=== PATIENT | female | born 2000 | race Asian ===

== ENCOUNTER 2025-01-07 08:58 | Outpatient (AMB) | payer BC, SELFPAY ==
--- NOTE | 2025-01-07 09:03 | OBCLNT_ITS ---
Vital Signs 01/07/25 09:15 Height 1.52 m Height Method Stated Weight 80.456 kg Weight Measurement Method Standing Scale BMI 34.6 BP 105/67 Blood Pressure Source Automatic Cuff Blood Pressure Location Left Upper Arm Position Sitting Respiration 14 Pulse 85 Pulse Source Monitor Temp 98.2 F Temp Source Oral Pulse Oximetry (%) 98 Oxygen Delivery Method Room Air Allergies/Home Meds Allergies & Medications Allergies No Known Allergies Allergy (Verified 01/07/25 09:16) Medication Reconciliation omega 0-tkb-pfe-fish oil 100 mg-160 mg-1,000 mg capsule (Fish Oil) cap PO 01/07/25 [History Confirmed 01/07/25] vits 75-iron 28 mg-folic acid 800 mcg-omega-3 oral combo pack (One A Day Women's DHA) pkg PO 01/07/25 [History Confirmed 01/07/25] Intake Visit Data Collection New Patient or Established: New Patient (never been to [facility]) Reason for Visit:: first part, care Seen by Clinical Staff ONLY (RN/MA): No Weights And Measures Inspector Required: Yes Do You Feel Safe at Home: Yes Authorities Contacted: N/A PCP or OBGYN visit in last 3 months: No Hx Now: Yes Are you currently on any form of Control: No Last menstrual period: 11/16/24 Pain Present Currently: No Pain Scale Used: Sy-Savage/Numerical Pain scale:: 0 Smoking Status Smoking Status: Never smoker Questionnaires Covid-19 Vaccine Questionnaire Has patient been vacinated for Covid-19 Have you been vacinated for Covid-19: Yes PHQ-9 PHQ-2 Over the last 2 weeks, how often have you been bothered by any of the following problems? 1. Little interest or pleasure in doing things: not at all 2. Feeling down, depressed, or hopeless: not at all Total score: 0 PHQ-9 3. Trouble falling or staying asleep, or sleeping too much: Not at all 4. Feeling tired or having little energy: Not at all 5. Poor appetite or overeating: Not at all 6. Feeling bad about yourself - or that you are a failure or have let yourself or your family down: Not at all 7. Trouble concentrating on things, such as reading the newspaper or watching television: Not at all 8. Moving or speaking so slowly that other people could have noticed? - Or the opposite - being so fidgety or restless that you have been moving around a lot more than usual: not at all 9. Thoughts that you would be better off or of hurting yourself in some way: Not at all Total score: 0 Source: Developed by Drs. Tavon Peters, Alondra Gaitan, Ulises Amezquita and colleagues, with an educational meliza from [employer]. 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 Her is in IT . 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 at Home: Yes Past Medical History Past Medical History Have you ever been diagnosed with any of the following: Neurological Problems Cerebrovascular Accident (CVA): No Seizures: No Guillain-[place] Syndrome: No Dominique's Palsy: No Migraine: No Cardiology Problems Cardiac Arrhythmia: No Angina: No Hypercholesterolemia: No Rheumatic Fever: No Deep Vein Thrombosis: No Hypertension: No Respiratory Problems Asthma: No Bronchitis: No Pneumonia: No Tuberculosis: No Pulmonary Embolism: No Sleep Apnea: No Tobacco Use: No Stomache/Intestinal Problems Gall Bladder Disease: No Irritable Bowel: No Gastroesophageal Reflux Disease: No Genital/Urinary Problems Chronic Kidney Disease: No Renal Disease: No Kidney Stones: No Reproductive Problems Breast Cancer: No Endometriosis: No Fibroids: No Genital Herpes: No Gonorrhea: No Pelvic Inflammatory Disease: No Polycystic Ovarian Syndrome: No Previous Pregnancies: No Syphilis: No Uterine Prolapse: No Musculoskeletal Problems Arthritis: No Rheumatoid Arthritis: No Scoliosis: No Carpal Tunnel Syndrome: No Fibromyalgia: No Endocrine Problems Diabetes Mellitus Type 1: No Diabetes Mellitus Type 2: No Hyperthyroidism: No Hypothyroidism: No Systemic Lupus Erythematosus: No Blood Problems Anemia: No Thalassemia: No Clotting Problems: No Psychologic Problems Depression: No Anxiety: No Attention Deficit Disorder: No Other Problems Hospitalization: No Autoimmune Disease: No Cosmetic Surgery: No Blood Transfusions: No MRSA: No Surgical History Appendectomy: Yes (Laparoscopic appendectomy June 2023) Bariatric Surgery: No Breast Surgery: No History of Present Illness HPI Narrative Patient is a pleasant 24-year-old G1, P0 presents with her for a new OB appointment. She is sure of her LMP was 11/16/2024 giving her a due date of 08/23/2025. She denies vaginal bleeding she reports mild nausea and fatigue. She is due for a Pap smear today. She is taking vitamins and fish oil today. OB Initial Visit Menstrual History Menstrual reliability: definite Flow: normal Menstrual regularity: regular Monthly: Yes Age at menarche: 14 On control pills at conception: No Date of positive home test: 12/15/24 Associated symptoms (LMP): Reports nausea and irritability OB History : 1 Para: 0 Hx # Pregnancies: 0 Hx Total # of Abortions (Spontaneous & Elective): 0 Infection History & Risk Evaluation History of STDs: none Patient or partner has history of Genital Herpes: No Varicella/chicken pox status: immunized Genetic Screening & History Genetic Screening/Teratology Counseling - Includes patient, baby's father, or anyone in either family with: 1. Patient's age 35 years or older as of estimated date of delivery: No 2. Thalassemia (Divehi, Belarusian, Mediterranean, or Background); MCV less than 80: No 3. Neural Tube Defect (Meningomyelocele, Spina Bifida, or Anencephaly): No 4. Congenital Heart Defect: No 5. Down Syndrome: No 6. Brian-Sachs (Ashkenazi [place], Cajun, Malay [place]): No 7. Rut Disease (Ashkenazi [place]): No 8. Familial Dysautonomia (Ashkenazi [place]): No 9. Sickle Cell Disease or Trait (): No 10. Hemophilia or other blood disorders: No 11. Muscular Dystrophy: No 12. Cystic Fibrosis: No 13. [place]'s Chorea: No 14. Mental Retardation/Autism: No 15. Other inherited genetic or chromosomal disorder: No 16. Maternal Metabolic Disorder (EG,TYPE 1 Diabetes, PKU): No 17. Patient or baby's father had a child with defects not listed above: No 18. Recurrent loss or a stillbirth: No 19. Medications (including supplements, vitamins, herbs or otc drugs)/illicit/recreational drugs/alcohol since last menstrual period: No 20. Any other: No Comments/Counseling: Patient and her desire NIPT will authorize for this and draw it at next visit as patient is only 7 weeks today. Infection History 1. Live with someone with TB or exposed to TB: No 2. Rash or viral illness since last menstrual period: No 3. Hepatitis B,C: No Other (see comments) Source: [employer] OB Flowsheet OB Flowsheet Initial Weight: Not Recorded Date -?-?-?-?-?-?-?-?-?-?-?-?- EGA Weight Edema CTX Effacement BP Fundal ht Pres Dilation Effacement Station Visit Note Alb Glu FHR Mov 01/07/25 -?-?-?-?-?-?-?-?-?-?-?-?- 7w 3d 80.456 kg 105/67 140 Review of Systems Constitutional Constitutional: Reports system reviewed and no additional complaints, except as documented, Reports poor appetite and Reports lethargy Gastrointestinal Gastrointestinal: Reports nausea Psychiatric Psychiatric: Reports irritability Exam General General Appearance: alert, in no apparent distress, comfortable, cooperative, healthy appearing and well groomed Head Head exam: atraumatic, normocephalic and normal inspection ENT ENT exam: Present other (Patient has braces on her teeth) Neck Neck exam: Present normal inspection, full ROM and trachea midline Chest Chest inspection: Present normal inspection and symmetric chest wall rise Exp Chest Breast: bilateral: other (Breasts slightly swollen otherwise normal bilaterally.) Resp Respiratory exam: Present normal lung sounds bilaterally Card Cardiovascular exam: Present regular rate, normal rhythm and normal heart sounds Abdominal Abdominal exam: Present soft and normal bowel sounds External exam: Present normal external exam Speculum exam: Present normal speculum exam Bimanual exam: Present normal bimanual exam and other (Slightly narrow pelvic outlet) Extremities Extremities exam: Present normal inspection and full ROM Psych Psychiatric exam: Present normal affect and normal mood Skin Skin exam: Present warm, dry, intact and normal color Assessment & Plan Diagnosis / Problem List (1) : Status: Acute Additional Plan Follow Up: 4 Weeks Office Procedures OB Clinic LOC & Office Proc's Nursing/Assessment Patient Status: Initial/New Patient OB Clinic Nursing Assessment: Medication Reconciliation, Update PMH in EMR and Vital Signs OB Clinic Coordination of Care: Complex Care and Chronic Disease 1-5, Consent,records obtained, informed consent, Education Simp Pt/Fam, Lab and Imaging orders and Staff clarify orders Special Needs: Heart tones Miscellaneous Interventions: Pelvic/Pap Smear Set up New Patient Charge New Patient Point Assignment: [id number] New Patient Point Charge: BUSINESS TRANSFORMATION MANAGER Level 4 ([id number]) AGRICULTURAL PLOW OPERATOR: Papsmear Pap Smear Procedure [place] in room during procedure?: No Papsmear completed: yes OB Ultrasound OB Ultrasound Ultrasound technique:: transabdominal Gestational sac assessment: Presence, location, size, shape:: Intrauterine at 6-7 weeks with cardiac activity noted. [place]-rump length of 0.69 corresponding to 6 weeks 4 days. Embryo/ Assessment 1: Cardiac activity confirmation:: Yes
[2025-01-07 09:15] VITALS: BP 105/67; PULSE 85; RESP 14; TEMP 36.8; O2SAT 98; BMI 34.6
== END 2025-01-07 09:43 | disposition home or self-care (01) ==
LOC: HODSOBC 08:58
PROVIDERS: Supervising Provider Obstetrics & Gynecology; Visit Provider Obstetrics & Gynecology
DX: Z34.01 Encounter for supervision of normal first pregnancy, first trimester (principal); Z3A.01 Less than 8 weeks gestation of pregnancy
CPT/HCPCS: 76805; 99204; Q0091; G0463

== ENCOUNTER 2025-02-09 15:15 | Outpatient (AMB) | payer BC, SELFPAY ==
[2025-02-09 15:18] VITALS: BP 110/72; PULSE 93; RESP 18; TEMP 36.7; O2SAT 97; BMI 35.2
--- NOTE | 2025-02-09 15:18 | OBCLNT_ITS ---
Vital Signs 02/09/25 15:18 Height 1.52 m Height Method Stated Weight 81.363 kg Weight Measurement Method Standing Scale BMI 35.2 BP 110/72 Blood Pressure Source Automatic Cuff Blood Pressure Location Left Upper Arm Position Sitting Respiration 18 Pulse 93 Pulse Source Monitor Temp 98.1 F Temp Source Oral Pulse Oximetry (%) 97 Oxygen Delivery Method Room Air Allergies/Home Meds Allergies & Medications Allergies No Known Allergies Allergy (Verified 02/09/25 15:20) Medication Reconciliation omega 1-gce-uvx-fish oil 100 mg-160 mg-1,000 mg capsule (Fish Oil) cap PO 01/07/25 [History Confirmed 02/09/25] vits 75-iron 28 mg-folic acid 800 mcg-omega-3 oral combo pack (One A Day Women's DHA) pkg PO 01/07/25 [History Confirmed 02/09/25] Intake Visit Data Collection New Patient or Established: Established Patient (seen at [facility] within 3 years) Reason for Visit:: CARE Seen by Clinical Staff ONLY (RN/MA): No Radiosonde Operator Required: No Do You Feel Safe at Home: Yes Authorities Contacted: N/A PCP or OBGYN visit in last 3 months: Yes Date of Last PCP or OBGYN visit: 01/07/25 Are you currently on any form of Control: No Last menstrual period: 11/16/25 Pain Present Currently: No Pain Scale Used: Sy-Savage/Numerical Pain scale:: 0 Smoking Status Smoking Status: Never smoker Questionnaires Covid-19 Vaccine Questionnaire Has patient been vacinated for Covid-19 Have you been vacinated for Covid-19: Yes PHQ-9 PHQ-2 Over the last 2 weeks, how often have you been bothered by any of the following problems? 1. Little interest or pleasure in doing things: not at all 2. Feeling down, depressed, or hopeless: not at all Total score: 0 PHQ-9 3. Trouble falling or staying asleep, or sleeping too much: Not at all 4. Feeling tired or having little energy: Not at all 5. Poor appetite or overeating: Not at all 6. Feeling bad about yourself - or that you are a failure or have let yourself or your family down: Not at all 7. Trouble concentrating on things, such as reading the newspaper or watching television: Not at all 8. Moving or speaking so slowly that other people could have noticed? - Or the opposite - being so fidgety or restless that you have been moving around a lot more than usual: not at all 9. Thoughts that you would be better off or of hurting yourself in some way: Not at all Total score: 0 Source: Developed by Drs. Tavon Peters, Alondra Gaitan, Ulises Amezquita and colleagues, with an educational meliza from [employer]. 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 at Home: Yes Past Medical History Past Medical History Have you ever been diagnosed with any of the following: Neurological Problems Cerebrovascular Accident (CVA): No Transient Ischemic Attacks (TIA): No Parkinson's Disease: No Brain Tumor: No Meningitis: No Seizures: No Epilepsy: No Multiple Sclerosis: No Cerebral Palsy: No Amyotrophic Lateral Sclerosis (ALS/Aline Gehrig's): No Guillain-[place] Syndrome: No Spina Bifida: No Dominique's Palsy: No Subdural Hematoma: No Migraine: No Head Trauma: No Spinal Cord Injury: No Traumatic Brain Injury: No Cardiology Problems Myocardial Infarction: No Cardiac Arrhythmia: No Atrial Fibrillation: No Angina: No Heart Murmur: No Coronary Artery Disease: No Atherosclerotic Heart Disease: No Hypercholesterolemia: No Rheumatic Fever: No Deep Vein Thrombosis: No Hypertension: No Hypotension: No Respiratory Problems Chronic Obstructive Pulmonary Disease (COPD): No Asthma: No Bronchitis: No Pneumonia: No Tuberculosis: No Pulmonary Embolism: No Sleep Apnea: No Respiratory Aspiration: No Hx Cough: No Cough: No Wheezing: No Chest Deformities: No Smoking: No Tobacco Use: No Clubbing: No Stomache/Intestinal Problems Hepatitis: No Pancreatic Cancer: No Pancreatitis: No Celiac Disease: No Gall Bladder Disease: No Esophageal Varices: No Naranjo's Esophagus: No Colitis: No Ulcerative Colitis: No Diverticulitis: No Diverticulosis: No Irritable Bowel: No Obstructive Bowel: No Hiatal Hernia: No Hemorrhoids: No Gastroesophageal Reflux Disease: No Genital/Urinary Problems Chronic Kidney Disease: No Renal Disease: No Kidney Stones: No Polycystic Kidney Disease: No Neurogenic Bladder: No Inguinal Hernia: No Dialysis: No Prostate Cancer: No Benign Prostatic Hyperplasia: No Reproductive Problems Breast Cancer: No Endometriosis: No Fibroids: No Genital Herpes: No Gonorrhea: No Pelvic Inflammatory Disease: No Polycystic Ovarian Syndrome: No Previous Pregnancies: No Syphilis: No Testicular Cancer: No Uterine Prolapse: No Musculoskeletal Problems Muscular Dystrophy: No Myasthenia Gravis: No Marfan's Syndrome: No Bone Cancer: No Arthritis: No Rheumatoid Arthritis: No Osteoporosis: No Degenerative Disk Disease: No Scoliosis: No Carpal Tunnel Syndrome: No Fibromyalgia: No Head,Eye,Nose,Throat Problems Cataracts: No Glaucoma: No Blind: No Retinal Detachment: No Macular Degeneration: No Chronic Ear Infections: No Deafness: No Eye Prosthesis: No Endocrine Problems Diabetes Mellitus Type 1: No Diabetes Mellitus Type 2: No Hypoglycemia: No Kingsford's Syndrome: No Burleigh's Disease: No Hyperthyroidism: No Hypothyroidism: No Thyroid Cancer: No Parathyroid Disease: No Pituitary Disease: No Systemic Lupus Erythematosus: No Syndrome of Inappropriate Antidiuretic Hormone: No Adrenal Disease: No Graves' Disease: No Blood Problems Anemia: No Leukemia: No Hemophilia: No Thalassemia: No Sickle Cell Disease: No Clotting Problems: No Psychologic Problems Depression: No Anxiety: No Behavior Problems: No Attention Deficit Disorder: No Other Problems Hospitalization: No Down Syndrome: No Autism: No Developmental Delay: No Cosmetic Surgery: No Shingles: No Falls: No Blood Transfusions: No Blood Transfusion Reaction: No Anesthesia Reactions: No Organ Transplant: No Chemotherapy: No Radiation Therapy: No Hyperbaric Therapy: No MRSA: No VRSA: No Surgical History Appendectomy: Yes (Laparoscopic appendectomy June 2023) Bariatric Surgery: No Breast Surgery: No Visit JENNIFER Calculator Estimated Delivery Date Method Current WG Current Estimate 08/23/25 LMP (Certain) 12w 1d Expected Delivery Route/Plan Patient is a G1, P0 anticipate Initial Weight: Not Recorded Date -?-?-?-?-?-?-?-?-?-?-?-?- EGA Weight Edema CTX Effacement BP Fundal ht Pres Dilation Effacement Station Visit Note Alb Glu FHR Mov 01/07/25 -?-?-?-?-?-?-?-?-?-?-?-?- 7w 3d 80.456 kg 105/67 140 02/09/25 -?-?-?-?-?-?-?-?-?-?-?-?- 12w 1d 81.363 kg 110/72 145 Notes Visit Date: 02/09/25 Last Updated by: Peggy Perez (OB Clinic), Patient is doing well getting some energy back still not a lot of appetite. Father the baby is at bedside. They both desire NIPT and we have to authorize for this. Her labs were drawn at [facility] and we will try to get a hold of them to review them for the patient. Assessment & Plan Additional Plan Follow Up: 4 Weeks Office Procedures OB Clinic LOC & Office Proc's Nursing/Assessment Patient Status: Established Patient OB Clinic Nursing Assessment: Medication Reconciliation, Update PMH in EMR and Vital Signs OB Clinic Coordination of Care: Complex Care and Chronic Disease 1-5, Consent,records obtained, informed consent, Education Simp Pt/Fam, Lab and Imaging orders, Results/Orders obtained and Staff clarify orders Special Needs: Heart tones Established Patient Charge Established Patient Point Assignment: 135 Established Patient Point Charge: EP Level 4 ([id number])
== END 2025-02-09 15:45 | disposition home or self-care (01) ==
LOC: HODSOBC 15:15
PROVIDERS: Supervising Provider Obstetrics & Gynecology; Visit Provider Obstetrics & Gynecology
DX: Z34.91 Encounter for supervision of normal pregnancy, unspecified, first trimester (principal); Z3A.12 12 weeks gestation of pregnancy
CPT/HCPCS: 99214; G0463

== ENCOUNTER 2025-03-16 09:01 | Outpatient (AMB) | payer BC, SELFPAY ==
[2025-03-16 09:29] VITALS: BP 113/71; PULSE 96; RESP 18; TEMP 36.6; O2SAT 98; BMI 35.6
--- NOTE | 2025-03-16 09:29 | OBCLNT_ITS ---
Vital Signs 03/16/25 09:29 Height 1.52 m Height Method Stated Weight 82.27 kg Weight Measurement Method Standing Scale BMI 35.6 BP 113/71 Blood Pressure Source Automatic Cuff Blood Pressure Location Right Upper Arm Position Sitting Respiration 18 Pulse 96 Pulse Source Monitor Temp 97.8 F Temp Source Temporal Artery Scan Pulse Oximetry (%) 98 Oxygen Delivery Method Room Air Allergies/Home Meds Allergies & Medications Allergies No Known Allergies Allergy (Verified 03/16/25 09:30) Medication Reconciliation omega 8-cmv-jxr-fish oil 100 mg-160 mg-1,000 mg capsule (Fish Oil) cap PO 12/19 12/11 [History Confirmed 03/16/25] vits 75-iron 28 mg-folic acid 800 mcg-omega-3 oral combo pack (One A Day Women's DHA) pkg PO 01/07/25 [History Confirmed 03/16/25] Intake Visit Data Collection New Patient or Established: Established Patient (seen at [facility] within 3 years) Reason for Visit:: obc Do You Feel Safe at Home: Yes Authorities Contacted: N/A PCP or OBGYN visit in last 3 months: Yes Last menstrual period: 11/16/24 Pain Present Currently: No Smoking Status Smoking Status: Never smoker Questionnaires Covid-19 Vaccine Questionnaire Has patient been vacinated for Covid-19 Have you been vacinated for Covid-19: Yes PHQ-9 PHQ-2 Over the last 2 weeks, how often have you been bothered by any of the following problems? 1. Little interest or pleasure in doing things: not at all 2. Feeling down, depressed, or hopeless: not at all Total score: 0 PHQ-9 8. Moving or speaking so slowly that other people could have noticed? - Or the opposite - being so fidgety or restless that you have been moving around a lot more than usual: not at all Source: Developed by Drs. Tavon Peters, Alondra Gaitan, Ulises Amezquita and colleagues, with an educational meliza from [employer]. 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 Her is in IT . 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 at Home: Yes Past Medical History Past Medical History Have you ever been diagnosed with any of the following: Neurological Problems Cerebrovascular Accident (CVA): No Transient Ischemic Attacks (TIA): No Parkinson's Disease: No Brain Tumor: No Meningitis: No Seizures: No Epilepsy: No Multiple Sclerosis: No Cerebral Palsy: No Amyotrophic Lateral Sclerosis (ALS/Aline Gehrig's): No Guillain-[place] Syndrome: No Spina Bifida: No Dominique's Palsy: No Subdural Hematoma: No Migraine: No Head Trauma: No Spinal Cord Injury: No Traumatic Brain Injury: No Cardiology Problems Myocardial Infarction: No Cardiac Arrhythmia: No Atrial Fibrillation: No Angina: No Heart Murmur: No Coronary Artery Disease: No Atherosclerotic Heart Disease: No Hypercholesterolemia: No Rheumatic Fever: No Deep Vein Thrombosis: No Hypertension: No Hypotension: No Respiratory Problems Chronic Obstructive Pulmonary Disease (COPD): No Asthma: No Bronchitis: No Pneumonia: No Tuberculosis: No Pulmonary Embolism: No Sleep Apnea: No Respiratory Aspiration: No Hx Cough: No Cough: No Wheezing: No Chest Deformities: No Smoking: No Tobacco Use: No Clubbing: No Stomache/Intestinal Problems Hepatitis: No Pancreatic Cancer: No Pancreatitis: No Celiac Disease: No Gall Bladder Disease: No Esophageal Varices: No Naranjo's Esophagus: No Colitis: No Ulcerative Colitis: No Diverticulitis: No Diverticulosis: No Irritable Bowel: No Obstructive Bowel: No Hiatal Hernia: No Hemorrhoids: No Gastroesophageal Reflux Disease: No Genital/Urinary Problems Renal Disease: No Kidney Stones: No Polycystic Kidney Disease: No Neurogenic Bladder: No Inguinal Hernia: No Dialysis: No Reproductive Problems Breast Cancer: No Endometriosis: No Fibroids: No Genital Herpes: No Gonorrhea: No Pelvic Inflammatory Disease: No Polycystic Ovarian Syndrome: No Previous Pregnancies: No Syphilis: No Uterine Prolapse: No Musculoskeletal Problems Muscular Dystrophy: No Myasthenia Gravis: No Marfan's Syndrome: No Bone Cancer: No Arthritis: No Rheumatoid Arthritis: No Osteoporosis: No Degenerative Disk Disease: No Scoliosis: No Carpal Tunnel Syndrome: No Fibromyalgia: No Head,Eye,Nose,Throat Problems Cataracts: No Glaucoma: No Blind: No Retinal Detachment: No Macular Degeneration: No Chronic Ear Infections: No Deafness: No Eye Prosthesis: No Endocrine Problems Diabetes Mellitus Type 1: No Diabetes Mellitus Type 2: No Hypoglycemia: No Telma's Syndrome: No Hudson's Disease: No Hyperthyroidism: No Hypothyroidism: No Thyroid Cancer: No Parathyroid Disease: No Pituitary Disease: No Systemic Lupus Erythematosus: No Syndrome of Inappropriate Antidiuretic Hormone: No Adrenal Disease: No Graves' Disease: No Blood Problems Anemia: No Leukemia: No Hemophilia: No Thalassemia: No Sickle Cell Disease: No Clotting Problems: No Psychologic Problems Depression: No Anxiety: No Behavior Problems: No Attention Deficit Disorder: No Other Problems Hospitalization: No Down Syndrome: No Autism: No Developmental Delay: No Cosmetic Surgery: No Shingles: No Falls: No Blood Transfusions: No Blood Transfusion Reaction: No Anesthesia Reactions: No Organ Transplant: No Chemotherapy: No Radiation Therapy: No Hyperbaric Therapy: No MRSA: No VRSA: No Surgical History Appendectomy: Yes (Laparoscopic appendectomy June 2023) Bariatric Surgery: No Breast Surgery: No History of Present Illness HPI Narrative ?? Visit OB Visit Log OB Flowsheet Initial Weight: Not Recorded Date -?-?-?-?-?-?-?-?-?-?-?-?- EGA Weight Edema CTX Effacement BP Fundal ht Pres Dilation Effacement Station Visit Note Alb Glu FHR Mov 01/07/25 -?-?-?-?-?-?-?-?-?-?-?-?- 7w 3d 80.456 kg 105/67 140 02/09/25 -?-?-?-?-?-?-?-?-?-?-?-?- 12w 1d 81.363 kg 110/72 145 03/16/25 -?-?-?-?-?-?-?-?-?-?-?-?- 17w 1d 82.27 kg 113/71 140 active JENNIFER Calculator Estimated Delivery Date Method Current WG Current Estimate 08/23/25 LMP (Certain) 17w 2d Expected Delivery Route/Plan Patient is a G1, P0 anticipate Notes Visit Date: 03/16/25 Last Updated by: Peggy Perez (OB Clinic)MD Patient denies any vaginal bleeding or cramping she is still sensitive to smells. She is 17 weeks today and doing her NIPT. She did have her labs done at [facility] and we cannot pull these up at this time. She reports tension headache did discuss Tylenol magnesium and frequent eating also patient is okay to drink a coffee in the morning. She has stopped all caffeine. Structural survey was ordered. Visit Date: 02/09/25 Last Updated by: Peggy Perez (OB Clinic)MD Patient is doing well getting some energy back still not a lot of appetite. Father the baby is at bedside. They both desire NIPT and we have to authorize for this. Her labs were drawn at [facility] and we will try to get a hold of them to review them for the patient. Assessment & Plan Diagnosis / Problem List (1) : Status: Acute Qualifiers: Weeks of gestation: 17 weeks Qualified Code(s): Z3A.17 - 17 weeks gestation of Additional Plan Follow Up: 4 Weeks Office Procedures OB Clinic LOC & Office Proc's Nursing/Assessment Patient Status: Established Patient OB Clinic Nursing Assessment: BP Monitoring, Medication Reconciliation, Update PMH in EMR and Vital Signs OB Clinic Coordination of Care: Complex Care and Chronic Disease 1-5, Education Complex Pt/Fam and Staff clarify orders Special Needs: Heart tones Established Patient Charge Established Patient Point Assignment: 130 Established Patient Point Charge: EP Level 4 (120-155)
== END 2025-03-16 09:58 | disposition home or self-care (01) ==
LOC: HODSOBC 09:01
PROVIDERS: Supervising Provider Obstetrics & Gynecology; Visit Provider Obstetrics & Gynecology
DX: O09.892 Supervision of other high risk pregnancies, second trimester (principal); Z3A.17 17 weeks gestation of pregnancy; O99.412 Diseases of the circulatory system complicating pregnancy, second trimester; G44.209 Tension-type headache, unspecified, not intractable
CPT/HCPCS: 99214; G0463

== ENCOUNTER 2025-04-13 10:11 | Outpatient (AMB) | payer BC, SELFPAY ==
[2025-04-13 10:25] VITALS: BP 104/72; PULSE 88; RESP 17; TEMP 36.7; O2SAT 98; BMI 36.3
--- NOTE | 2025-04-13 10:25 | AMB.OBVISIT ---
Vital Signs 04/13/25 10:25 Height 1.52 m Height Method Stated Weight 84.482 kg Weight Measurement Method Standing Scale BMI 36.3 BP 104/72 Blood Pressure Source Automatic Cuff Blood Pressure Location Right Upper Arm Position Sitting Respiration 17 Pulse 88 Pulse Source Monitor Temp 98.1 F Temp Source Temporal Artery Scan Pulse Oximetry (%) 98 Oxygen Delivery Method Room Air Allergies/Home Meds Allergies & Medications Allergies No Known Allergies Allergy (Verified 04/13/25 10:26) Medication Reconciliation omega 8-slj-vxj-fish oil 100 mg-160 mg-1,000 mg capsule (Fish Oil) cap PO 01/07/25 [History Confirmed 04/13/25] vits 75-iron 28 mg-folic acid 800 mcg-omega-3 oral combo pack (One A Day Women's DHA) pkg PO 01/07/25 [History Confirmed 04/13/25] Intake Visit Data Collection New Patient or Established: Established Patient (seen at [facility] within 3 years) Reason for Visit:: OBC Seen by Clinical Staff ONLY (RN/MA): No Motorcycle Subassembler Required: No Do You Feel Safe at Home: Yes Authorities Contacted: N/A PCP or OBGYN visit in last 3 months: Yes Date of Last PCP or OBGYN visit: 03/16/25 Hx Now: Yes Are you currently on any form of Control: No Pain Present Currently: No Pain Scale Used: Sy-Savage/Numerical Smoking Status Smoking Status: Never smoker Questionnaires Covid-19 Vaccine Questionnaire Has patient been vacinated for Covid-19 Have you been vacinated for Covid-19: Yes PHQ-9 PHQ-2 Over the last 2 weeks, how often have you been bothered by any of the following problems? 1. Little interest or pleasure in doing things: not at all 2. Feeling down, depressed, or hopeless: not at all Total score: 0 PHQ-9 3. Trouble falling or staying asleep, or sleeping too much: Not at all 4. Feeling tired or having little energy: Not at all 5. Poor appetite or overeating: Not at all 6. Feeling bad about yourself - or that you are a failure or have let yourself or your family down: Not at all 7. Trouble concentrating on things, such as reading the newspaper or watching television: Not at all 8. Moving or speaking so slowly that other people could have noticed? - Or the opposite - being so fidgety or restless that you have been moving around a lot more than usual: not at all 9. Thoughts that you would be better off or of hurting yourself in some way: Not at all Total score: 0 If you checked off any problems, how difficult have these problems made it for you to do your work, take care of things at home, or get along with other people?: not difficult at all Source: Developed by Drs. Tavon Peters, Alondra Gaitan, Ulises Amezquita and colleagues, with an educational meliza from [employer]. 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 Past Medical History: No Hx Hypothyroidism, No Hx Hyperthyroidism, No Hx Breast Cancer, No Hx Hypertension, No Hx Anemia, No Hx Renal Disease, No Hx Deep Vein Thrombosis, No Hx Diabetes Mellitus Type 1, No Hx Diabetes Mellitus Type 2 and No Hx Polycystic Ovarian Syndrome Care OB Visit Log OB Flowsheet Initial Weight: Not Recorded Date <del>?</del> EGA Weight BP Alb Glu CTX Pres Fundal ht FHR Mov Dilation Station Effacement Hx Notes Visit Note 01/07/25 <del>?</del> 7w 3d 80.456 kg 105/67 140 02/09/25 <del>?</del> 12w 1d 81.363 kg 110/72 145 03/16/25 <del>?</del> 17w 1d 82.27 kg 113/71 140 active 04/13/25 <del>?</del> 21w 1d 84.482 kg 104/72 137 active Patient reports flutter. No vaginal bleeding no discharge. Structural survey reviewed and normal. JENNIFER Calculator Estimated Delivery Date Method Current WG Current Estimate 08/23/25 LMP (Certain) 21w 1d Comments: Pap normal GC negative Chlamydia negative. NIPT 46 XY. Expected Delivery Route/Plan Patient is a G1, P0 anticipate Notes Visit Date: 04/13/25 Last Updated by: Peggy Perez (OB Clinic)MD Labs attempted to be obtained from [facility] and not available. Visit Date: 03/16/25 Last Updated by: Peggy Perez (OB Clinic)MD Patient denies any vaginal bleeding or cramping she is still sensitive to smells. She is 17 weeks today and doing her NIPT. She did have her labs done at [facility] and we cannot pull these up at this time. She reports tension headache did discuss Tylenol magnesium and frequent eating also patient is okay to drink a coffee in the morning. She has stopped all caffeine. Structural survey was ordered. Visit Date: 02/09/25 Last Updated by: Peggy Perez (OB Clinic)MD Patient is doing well getting some energy back still not a lot of appetite. Father the baby is at bedside. They both desire NIPT and we have to authorize for this. Her labs were drawn at [facility] and we will try to get a hold of them to review them for the patient. Office Procedures OB Clinic LOC & Office Proc's Nursing/Assessment Patient Status: Established Patient OB Clinic Nursing Assessment: Medication Reconciliation, Update PMH in EMR and Vital Signs OB Clinic Coordination of Care: Complex Care and Chronic Disease 1-5, Consent,records obtained, informed consent, Education Simp Pt/Fam and Staff clarify orders Special Needs: Heart tones Established Patient Charge Established Patient Point Assignment: 115 Established Patient Point Charge: EP Level 3 (80-115)
== END 2025-04-13 11:20 | disposition home or self-care (01) ==
LOC: HODSOBC 10:11
PROVIDERS: Supervising Provider Obstetrics & Gynecology; Visit Provider Obstetrics & Gynecology
DX: Z34.02 Encounter for supervision of normal first pregnancy, second trimester (principal); Z3A.21 21 weeks gestation of pregnancy
CPT/HCPCS: 99213; G0463

== ENCOUNTER 2025-06-02 11:17 | Outpatient (AMB) | payer BC, SELFPAY ==
[2025-06-02 11:25] VITALS: BP 100/68; PULSE 89; RESP 17; TEMP 36.6; O2SAT 98; BMI 37.3
--- NOTE | 2025-06-02 11:25 | OBCLNT_ITS ---
Vital Signs 06/02/25 11:25 Height 1.52 m Height Method Stated Weight 86.239 kg Weight Measurement Method Standing Scale BMI 37.3 BP 100/68 Blood Pressure Source Automatic Cuff Blood Pressure Location Right Upper Arm Position Sitting Respiration 17 Pulse 89 Pulse Source Monitor Temp 97.8 F Temp Source Temporal Artery Scan Pulse Oximetry (%) 98 Oxygen Delivery Method Room Air Allergies/Home Meds Allergies & Medications Allergies No Known Allergies Allergy (Verified 06/02/25 11:30) Medication Reconciliation omega 9-pzc-isz-fish oil 100 mg-160 mg-1,000 mg capsule (Fish Oil) cap PO [History Confirmed 06/02/25] vits 75-iron 28 mg-folic acid 800 mcg-omega-3 oral combo pack (One A Day Women's DHA) pkg PO 01/07/25 [History Confirmed 06/02/25] Intake Visit Data Collection New Patient or Established: Established Patient (seen at [facility] within 3 years) Reason for Visit:: OBC Seen by Clinical Staff ONLY (RN/MA): No Automatic Head Sawyer Required: No Do You Feel Safe at Home: Yes Authorities Contacted: N/A PCP or OBGYN visit in last 3 months: Yes Hx Now: Yes Are you currently on any form of Control: No Pain Present Currently: No Pain Scale Used: Sy-Savage/Numerical Pain scale:: 0 Smoking Status Smoking Status: Never smoker Questionnaires Covid-19 Vaccine Questionnaire Has patient been vacinated for Covid-19 Have you been vacinated for Covid-19: No PHQ-9 PHQ-2 Over the last 2 weeks, how often have you been bothered by any of the following problems? 1. Little interest or pleasure in doing things: not at all 2. Feeling down, depressed, or hopeless: not at all Total score: 0 PHQ-9 3. Trouble falling or staying asleep, or sleeping too much: Not at all 4. Feeling tired or having little energy: Not at all 5. Poor appetite or overeating: Not at all 6. Feeling bad about yourself - or that you are a failure or have let yourself or your family down: Not at all 7. Trouble concentrating on things, such as reading the newspaper or watching television: Not at all 8. Moving or speaking so slowly that other people could have noticed? - Or the opposite - being so fidgety or restless that you have been moving around a lot more than usual: not at all 9. Thoughts that you would be better off or of hurting yourself in some way: Not at all Total score: 0 If you checked off any problems, how difficult have these problems made it for you to do your work, take care of things at home, or get along with other people?: not difficult at all Source: Developed by Drs. Tavon Peters, Alondra Gaitan, Ulises Amezquita and colleagues, with an educational meliza from [employer]. 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 Her is in IT . 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 History Past Medical History: No Hx Hypothyroidism, No Hx Hyperthyroidism, No Hx Breast Cancer, No Hx Hypertension, No Hx Anemia, No Hx Renal Disease, No Hx Deep Vein Thrombosis, No Hx Diabetes Mellitus Type 1, No Hx Diabetes Mellitus Type 2 and No Hx Polycystic Ovarian Syndrome Care OB Visit Log OB Flowsheet Initial Weight: 80 kg Date -?-?-?-?-?-?-?-?-?-?-?-?- EGA Weight BP Alb Glu CTX Pres Fundal ht FHR Mov Dilation Station Effacement Hx Notes Visit Note 01/07/25 -?-?-?-?-?-?-?-?-?-?-?-?- 7w 3d 80.456 kg (+455.946 g) 105/67 140 02/09/25 -?-?-?-?-?-?-?-?-?-?-?-?- 12w 1d 81.363 kg (+1363.131 g) 110/72 145 03/16/25 -?-?-?-?-?-?-?-?-?-?-?-?- 17w 1d 82.27 kg (+2270.316 g) 113/71 140 active 04/13/25 -?-?-?-?-?-?-?-?-?-?-?-?- 21w 1d 84.482 kg (+4481.579 g) 104/72 137 active Patient reports flutter. No vaginal bleeding no discharge. Structura l survey reviewed and normal. 05/04/25 -?-?-?-?-?-?-?-?-?-?-?-?- 24w 1d 84.141 kg (+4141.384 g) 96/62 145 active Positive movement no loss of fluids no vaginal bleeding Glucose chal [facility]/25 -?-?-?-?-?-?-?-?-?-?-?-?- 28w 2d 86.239 kg (+6239.249 g) 100/68 absent unknown 28 156 act kristin Denies OB complaints. Reports good movement. Patient completed 3-hour GTT. OB panel today. Increase fluids. Discussed weight gain and 3-hour GTT results results. Decrease sugary foods. Continue prenatals. Return in 3 weeks with OB for OB check JENNIFER Calculator Estimated Delivery Date Method Current WG Current Estimate 08/23/25 LMP (Certain) 28w 2d Expected Delivery Route/Plan Patient is a G1, P0 anticipate Notes Visit Date: 06/02/25 Last Updated by: Yulia Marcial CNM 06/02/25: 3 hr gtt wnl Visit Date: 05/04/25 Last Updated by: Peggy Perez (OB Clinic)MD No labs available [facility]. Pap GC chlamydia negative NIPT negative structural survey within normal limits [facility]C 08/24/2025 Visit Date: 04/13/25 Last Updated by: Peggy Perez (OB Clinic)MD Labs attempted to be obtained from [facility] and not available. Visit Date: 03/16/25 Last Updated by: Peggy Perez (OB Clinic)MD Patient denies any vaginal bleeding or cramping she is still sensitive to smells. She is 17 weeks today and doing her NIPT. She did have her [facility] at [facility] and we cannot pull these up at this time. She reports tension headache did discuss Tylenol magnesium and frequent eating also patient is okay to drink a coffee in the morning. She has stopped all caffeine. Structural survey was ordered. Visit Date: 02/09/25 Last Updated by: Peggy Perez (OB Clinic), Patient is doing well getting some energy back still not a lot of appetite. Father the baby is at bedside. They both desire NIPT and we have to authorize for this. Her [facility] were [facility] and we will try to get a hold of them to review them for the patient. Office Procedures OB Clinic LOC & Office Proc's Nursing/Assessment Patient Status: Established Patient OB Clinic Nursing Assessment: Medication Reconciliation, Update PMH in EMR and Vital Signs OB Clinic Coordination of Care: Complex Care and Chronic Disease 1-5, Consent,records obtained, informed consent, Education Simp Pt/Fam and Staff clarify orders Special Needs: Heart tones Established Patient Charge Established Patient Point Assignment: 115 Established Patient Point Charge: EP Level 3 (80-115) Assessment & Plan Diagnosis / Problem List (1) Encounter for supervision of normal first , third trimester: Status: Acute Plan panel today. Discussed diet and weight gain. Discussed labs. Decrease sugars. Discussed labor precautions. Increase fluids and return in 3 weeks OB check with MD Additional Plan Follow Up: 3 Weeks (obc)
== END 2025-06-02 12:09 | disposition home or self-care (01) ==
LOC: HODSOBC 11:17
PROVIDERS: Supervising Provider Advanced Practice Midwife; Visit Provider Advanced Practice Midwife
DX: Z34.03 Encounter for supervision of normal first pregnancy, third trimester (principal); Z3A.28 28 weeks gestation of pregnancy
CPT/HCPCS: 99213; G0463

== ENCOUNTER 2025-06-29 08:54 | Outpatient (AMB) | payer BC, SELFPAY ==
[2025-06-29 09:10] VITALS: BP 112/75; PULSE 106; RESP 20; TEMP 36.7; O2SAT 98; BMI 37.3
--- NOTE | 2025-06-29 09:10 | OBCLNT_ITS ---
Vital Signs 06/29/25 09:10 Height 1.52 m Height Method Stated Weight 86.636 kg Weight Measurement Method Standing Scale BMI 37.3 BP 112/75 Blood Pressure Source Automatic Cuff Blood Pressure Location Left Upper Arm Position Sitting Respiration 20 Pulse 106 H Pulse Source Monitor Temp 98.1 F Temp Source Oral Pulse Oximetry (%) 98 Oxygen Delivery Method Room Air Allergies/Home Meds Allergies & Medications Allergies No Known Allergies Allergy (Verified 06/29/25 09:11) Medication Reconciliation omega 5-loq-xvb-fish oil 100 mg-160 mg-1,000 mg capsule (Fish Oil) cap PO 01/07/25 [History Confirmed 06/29/25] vits 75-iron 28 mg-folic acid 800 mcg-omega-3 oral combo pack (One A Day Women's DHA) pkg PO 01/07/25 [History Confirmed 06/29/25] Intake Visit Data Collection New Patient or Established: Established Patient (seen at [facility] within 3 years) Reason for Visit:: CARE Seen by Clinical Staff ONLY (RN/MA): No Log Haul Chain Feeder Required: No Do You Feel Safe at Home: Yes Authorities Contacted: N/A PCP or OBGYN visit in last 3 months: Yes Hx Now: Yes Are you currently on any form of Control: No Pain Present Currently: No Pain Scale Used: Sy-Savage/Numerical Pain scale:: 0 Smoking Status Smoking Status: Never smoker Questionnaires Covid-19 Vaccine Questionnaire Has patient been vacinated for Covid-19 Have you been vacinated for Covid-19: Yes PHQ-9 PHQ-2 Over the last 2 weeks, how often have you been bothered by any of the following problems? 1. Little interest or pleasure in doing things: not at all 2. Feeling down, depressed, or hopeless: not at all Total score: 0 PHQ-9 3. Trouble falling or staying asleep, or sleeping too much: Not at all 4. Feeling tired or having little energy: Not at all 5. Poor appetite or overeating: Not at all 6. Feeling bad about yourself - or that you are a failure or have let yourself or your family down: Not at all 7. Trouble concentrating on things, such as reading the newspaper or watching television: Not at all 8. Moving or speaking so slowly that other people could have noticed? - Or the opposite - being so fidgety or restless that you have been moving around a lot more than usual: not at all 9. Thoughts that you would be better off or of hurting yourself in some way: Not at all Total score: 0 Source: Developed by Drs. Tavon Peters, Alondra Gaitan, Ulises Amezquita and colleagues, with an educational meliza from [employer]. 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 Her is in IT . 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: Past Medical History Past Medical History: No Hx Hypothyroidism, No Hx Hyperthyroidism, No Hx Breast Cancer, No Hx Hypertension, No Hx Anemia, No Hx Renal Disease, No Hx Deep Vein Thrombosis, No Hx Diabetes Mellitus Type 1, No Hx Diabetes Mellitus Type 2 and No Hx Polycystic Ovarian Syndrome Care OB Visit Log OB Flowsheet Initial Weight: 80 kg Date -?-?-?-?-?-?-?-?-?-?-?-?- EGA Weight BP Alb Glu CTX Pres Fundal ht FHR Mov Dilation Station Effacement Hx Notes Visit Note 01/07/25 -?-?-?-?-?-?-?-?-?-?-?-?- 7w 3d 80.456 kg (+455.946 g) 105/67 140 02/09/25 -?-?-?-?-?-?-?-?-?-?-?-?- 12w 1d 81.363 kg (+1363.131 g) 110/72 145 03/16/25 -?-?-?-?-?-?-?-?-?-?-?-?- 17w 1d 82.27 kg (+2270.316 g) 113/71 140 active 04/13/25 -?-?-?-?-?-?-?-?-?-?-?-?- w 1d 84.482 kg (+4481.579 g) 104/72 137 active Patient reports flutter. No vaginal bleeding no discharge. Structura l survey reviewed and normal. 05/04/25 -?-?-?-?-?-?-?-?-?--?-?-?- 24w 1d 84.141 kg (+4141.384 g) 96/62 145 active Positive movement no loss of fluids no vaginal bleeding Glucose chal lenge test order from [facility] 06/02/25 -?-?-?-?-?-?-?-?-?-?-?-?- 28w 2d 86.239 kg (+6239.249 g) 100/68 absent unknown 28 156 act kristin Denies OB complaints. Reports good movement. Patient completed 3-hour GTT. OB panel today. Increase fluids. Discussed weight gain and 3-hour GTT results results. D ecrease sugary foods. Continue prenatals. Return in 3 weeks with OB for OB check 06/29/25 -?-?-?-?-?-?-?-?-?-?-?-?- 32w 1d 86.636 kg (+6636.142 g) 112/75 absent cephalic 34 132 ac tive +FM No UCs No LOF Ordered ultrasound for size greater than dates at [facility] in [place]. JENNIFER Calculator Estimated Delivery Date Method Current WG Current Estimate 08/23/25 LMP (Certain) 32w 1d Expected Delivery Route/Plan Patient is a G1, P0 anticipate Specific Issue/Plans labs drawn at [facility]. B+/antibody screen negative/rubella immune/RPR nonreactive/HIV negative/hepatitis B surface antigen negative/1 hour glucose elevated 148/3-hour glucose normal NIPT 46 XY Notes Visit Date: 06/29/25 Last Updated by: Peggy Perez (OB Clinic)MD Patient is present with her . She would like to collect her breastmilk and colostrum ahead of time. I recommended after 37 weeks. Patient with an ultrasound for size greater than dates. 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 We did labor. Patient is going to see how it goes she is open to epidural if needed. We discussed strep screen at 36 weeks. All questions were answered follow-up in 2 weeks. Visit Date: 06/02/25 Last Updated by: Yulia Marcial CNM 06/02/25: 3 hr gtt wnl Visit Date: 05/04/25 Last Updated by: Peggy Perez (OB Clinic)MD No labs available from [facility]. Pap GC chlamydia negative NIPT negative structural survey within normal limits EDC 08/24/2025 Visit Date: 04/13/25 Last Updated by: Peggy Perez (OB Clinic)MD Labs attempted to be obtained from [facility] and not available. Visit Date: 03/16/25 Last Updated by: Peggy Perez (OB Clinic)MD Patient denies any vaginal bleeding or cramping she is still sensitive to smells. She is 17 weeks today and doing her NIPT. She did have her labs done at [facility] and we cannot pull these up at this time. She reports tension headache did discuss Tylenol magnesium and frequent eating also patient is okay to drink a coffee in the morning. She has stopped all caffeine. Structural survey was ordered. Visit Date: 02/09/25 Last Updated by: Peggy Perez (OB Clinic)MD Patient is doing well getting some energy back still not a lot of appetite. Father the baby is at bedside. They both desire NIPT and we have to authorize for this. Her labs were drawn at [facility] and we will try to get a hold of them to review them for the patient. Office Procedures OB Clinic LOC & Office Proc's Nursing/Assessment Patient Status: Established Patient OB Clinic Nursing Assessment: Medication Reconciliation, Update PMH in EMR and Vital Signs OB Clinic Coordination of Care: Complex Care and Chronic Disease 1-5, Consent,records obtained, informed consent, Education Simp Pt/Fam, Lab and Imaging orders, Results/Orders obtained and Staff clarify orders Special Needs: Heart tones Established Patient Charge Established Patient Point Assignment: 135 Established Patient Point Charge: EP Level 4 (120-155) Assessment & Plan Diagnosis / Problem List (1) : Status: Acute Qualifiers: Weeks of gestation: 32 weeks Qualified Code(s): Z3A.32 - 32 weeks gestation of Plan: -F-undal height large. Schedule ultrasound for size greater than dates. (2) Encounter for supervision of normal first , third trimester: Status: Acute Additional Plan Follow Up: 2 Weeks
== END 2025-06-29 09:43 | disposition home or self-care (01) ==
LOC: HODSOBC 08:54
PROVIDERS: Supervising Provider Obstetrics & Gynecology; Visit Provider Obstetrics & Gynecology
DX: Z34.03 Encounter for supervision of normal first pregnancy, third trimester (principal); Z3A.32 32 weeks gestation of pregnancy
CPT/HCPCS: 99214; G0463

== ENCOUNTER 2025-07-19 08:50 | Outpatient (AMB) | payer BC, SELFPAY ==
--- NOTE | 2025-07-19 08:56 | AMB.OBVISIT ---
Vital Signs 07/19/25 09:04 Height 1.52 m Height Method Stated Weight 88.224 kg Weight Measurement Method Standing Scale BMI 38.2 BP 108/72 Blood Pressure Source Automatic Cuff Blood Pressure Location Left Upper Arm Position Sitting Respiration 16 Pulse 100 Pulse Source Monitor Temp 97.2 F Temp Source Oral Pulse Oximetry (%) 97 Oxygen Delivery Method Room Air Allergies/Home Meds Allergies & Medications Allergies No Known Allergies Allergy (Verified 07/19/25 08:56) Medication Reconciliation omega 8-wba-jro-fish oil 100 mg-160 mg-1,000 mg capsule (Fish Oil) cap PO 01/07/25 [History Confirmed 07/19/25] vits 75-iron 28 mg-folic acid 800 mcg-omega-3 oral combo pack (One A Day Women's DHA) pkg PO 01/07/25 [History Confirmed 07/19/25] Intake Visit Data Collection New Patient or Established: Established Patient (seen at [facility] within 3 years) Reason for Visit:: OBC Seen by Clinical Staff ONLY (RN/MA): No Helicopter Officer Required: No Do You Feel Safe at Home: Yes Authorities Contacted: N/A PCP or OBGYN visit in last 3 months: Yes Date of Last PCP or OBGYN visit: 06/02/25 Hx Now: Yes Are you currently on any form of Control: No Pain Present Currently: No Pain Scale Used: Sy-Savage/Numerical Pain scale:: 0 Smoking Status Smoking Status: Never smoker Questionnaires Covid-19 Vaccine Questionnaire Has patient been vacinated for Covid-19 Have you been vacinated for Covid-19: Yes PHQ-9 PHQ-2 Over the last 2 weeks, how often have you been bothered by any of the following problems? 1. Little interest or pleasure in doing things: not at all 2. Feeling down, depressed, or hopeless: not at all Total score: 0 PHQ-9 3. Trouble falling or staying asleep, or sleeping too much: Not at all 4. Feeling tired or having little energy: Not at all 5. Poor appetite or overeating: Not at all 6. Feeling bad about yourself - or that you are a failure or have let yourself or your family down: Not at all 7. Trouble concentrating on things, such as reading the newspaper or watching television: Not at all 8. Moving or speaking so slowly that other people could have noticed? - Or the opposite - being so fidgety or restless that you have been moving around a lot more than usual: not at all 9. Thoughts that you would be better off or of hurting yourself in some way: Not at all Total score: 0 If you checked off any problems, how difficult have these problems made it for you to do your work, take care of things at home, or get along with other people?: not difficult at all Source: Developed by Drs. Tavon Peters, Alondra Gaitan, Ulises Amezquita and colleagues, with an educational meliza from [employer]. 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: Past Medical History Past Medical History: No Hx Hypothyroidism, No Hx Hyperthyroidism, No Hx Breast Cancer, No Hx Hypertension, No Hx Anemia, No Hx Renal Disease, No Hx Deep Vein Thrombosis, No Hx Diabetes Mellitus Type 1, No Hx Diabetes Mellitus Type 2 and No Hx Polycystic Ovarian Syndrome Care OB Visit Log OB Flowsheet Initial Weight: 80 kg Date <del>?</del> EGA Weight BP Alb Glu CTX Pres Fundal ht FHR Mov Dilation Station Effacement Hx Notes Visit Note 01/07/25 <del>?</del> 7w 3d 80.456 kg (+455.946 g) 105/67 140 02/09/25 <del>?</del> 12w 1d 81.363 kg (+1363.131 g) 110/72 145 03/16/25 <del>?</del> 17w 1d 82.27 kg (+2270.316 g) 113/71 140 active 04/13/25 <del>?</del> 21w 1d 84.482 kg (+4481.579 g) 104/72 137 active Patient reports flutter. No vaginal bleeding no discharge. Structural survey reviewed and normal. 05/04/25 <del>?</del> 24w 1d 84.141 kg (+4141.384 g) 96/62 145 active Positive movement no loss of fluids no vaginal bleeding Glucose challenge test order from [facility] 06/02/25 <del>?</del> 28w 2d 86.239 kg (+6239.249 g) 100/68 absent unknown 28 156 active Denies OB complaints. Reports good movement. Patient completed 3-hour GTT. OB panel today. Increase fluids. Discussed weight gain and 3-hour GTT results results. Decrease sugary foods. Continue prenatals. Return in 3 weeks with OB for OB check 06/29/25 <del>?</del> 32w 1d 86.636 kg (+6636.142 g) 112/75 absent cephalic 34 132 active +FM No UCs No LOF Ordered ultrasound for size greater than dates at [facility] in [place]. 07/19/25 <del>?</del> 35w 0d 88.224 kg (+8223.716 g) 108/72 occasional cephalic 35 145 active Good movement no contractions no loss of fluids Went to [facility] over the weekend she got dehydrated at her baby shower. They gave her fluids and check labs. They checked her cervix she was 1 cm. JENNIFER Calculator Estimated Delivery Date Method Current WG Current Estimate 08/23/25 LMP (Certain) 35w 3d Expected Delivery Route/Plan Patient is a G1, P0 anticipate Specific Issue/Plans labs drawn at [facility]. B+/antibody screen negative/rubella immune/RPR nonreactive/HIV negative/hepatitis B surface antigen negative/1 hour glucose elevated 148/3-hour glucose normal NIPT 46 XY Ultrasound [facility] 07/12/2025 live IUP vertex presentation MICHELE 9.3 EFW 2318 which is about 5 pounds 10 ounces EDC 08/23/2025 Notes Visit Date: 07/19/25 Last Updated by: Peggy Perez (OB Clinic)MD Patient desires Tdap. Like to go off work at this time. To go natural and not get an epidural in labor if possible Visit Date: 06/29/25 Last Updated by: Peggy Perez (OB Clinic)MD Patient is present with her . She would like to collect her breastmilk and colostrum ahead of time. I recommended after 37 weeks. Patient with an ultrasound for size greater than dates. 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 We did labor. Patient is going to see how it goes she is open to epidural if needed. We discussed strep screen at 36 weeks. All questions were answered follow-up in 2 weeks. Visit Date: 06/02/25 Last Updated by: Yulia Marcial CNM 06/02/25: 3 hr gtt wnl Visit Date: 05/04/25 Last Updated by: Peggy Perez (OB Clinic)MD No labs available from [facility]. Pap GC chlamydia negative NIPT negative structural survey within normal limits EDC 08/24/2025 Visit Date: 04/13/25 Last Updated by: Peggy Perez (OB Clinic)MD Labs attempted to be obtained from [facility] and not available. Visit Date: 03/16/25 Last Updated by: Peggy Perez (OB Clinic)MD Patient denies any vaginal bleeding or cramping she is still sensitive to smells. She is 17 weeks today and doing her NIPT. She did have her labs done at [facility] and we cannot pull these up at this time. She reports tension headache did discuss Tylenol magnesium and frequent eating also patient is okay to drink a coffee in the morning. She has stopped all caffeine. Structural survey was ordered. Visit Date: 02/09/25 Last Updated by: Peggy Perez (OB Clinic)MD Patient is doing well getting some energy back still not a lot of appetite. Father the baby is at bedside. They both desire NIPT and we have to authorize for this. Her labs were drawn at [facility] and we will try to get a hold of them to review them for the patient. Office Procedures OB Clinic LOC & Office Proc's Nursing/Assessment Patient Status: Established Patient OB Clinic Nursing Assessment: Medication Reconciliation, Update PMH in EMR and Vital Signs OB Clinic Coordination of Care: Education Complex Pt/Fam, Consent,records obtained, informed consent, Education Simp Pt/Fam and Lab and Imaging orders Special Needs: Heart tones Established Patient Charge Established Patient Point Assignment: 115 Established Patient Point Charge: EP Level 3 (80-115) Immunizations diphth,pertus(acell),tetanus 2.5 Lf unit-8 mcg-5 Lf/0.5mL IM syringe Performing Provider: Peggy Perez (OB Clinic)MD Performing Location: [facility] Administered by: Nirali Cerrato MA on 07/19/25 11:58 Dose Route Admin Location Dispensed Lot Number Expiration Date Package NDC NDC Portfolio Architect 0.5 mL IM Left Deltoid 0.5 mL [id number] 09/09/27 30759-751-76 [id number] Asl Analytical VIS Given Date VIS Provided VIS Publication Date 07/19/25 Single Vaccine 25 Eligibility Eligibility Date Funding Source Public Non-[facility] Assessment & Plan Diagnosis / Problem List (1) : Status: Acute Qualifiers: Weeks of gestation: 35 weeks Qualified Code(s): Z3A.35 - 35 weeks gestation of Plan: Tdap today. Note for work. Group B strep next visit.
[2025-07-19 09:04] VITALS: BP 108/72; PULSE 100; RESP 16; TEMP 36.2; O2SAT 97; BMI 38.2
== END 2025-07-19 09:42 | disposition home or self-care (01) ==
PROVIDERS: Supervising Provider Obstetrics & Gynecology; Visit Provider Obstetrics & Gynecology
DX: Z34.03 Encounter for supervision of normal first pregnancy, third trimester (principal); Z3A.35 35 weeks gestation of pregnancy; Z23 Encounter for immunization
CPT/HCPCS: 90471; 90715; 99213; G0463

== ENCOUNTER 2025-07-27 10:54 | Outpatient (AMB) | payer BC, SELFPAY ==
[2025-07-27 13:09] VITALS: BP 115/77; PULSE 105; RESP 16; TEMP 36.2; O2SAT 98; BMI 38.3
--- NOTE | 2025-07-27 13:09 | OBCLNT_ITS ---
Vital Signs 07/27/25 13:09 Height 1.52 m Height Method Stated Weight 88.621 kg Weight Measurement Method Standing Scale BMI 38.3 BP 115/77 Blood Pressure Source Automatic Cuff Blood Pressure Location Left Upper Arm Position Sitting Respiration 16 Pulse 105 H Pulse Source Monitor Temp 97.2 F Temp Source Oral Pulse Oximetry (%) 98 Oxygen Delivery Method Room Air Allergies/Home Meds Allergies & Medications Allergies No Known Allergies Allergy (Verified 07/27/25 13:10) Medication Reconciliation omega 0-gst-tge-fish oil 100 mg-160 mg-1,000 mg capsule (Fish Oil) cap PO 01/07/25 [History Confirmed 07/27/25] vits 75-iron 28 mg-folic acid 800 mcg-omega-3 oral combo pack (One A Day Women's DHA) pkg PO 01/07/25 [History Confirmed 07/27/25] Intake Visit Data Collection New Patient or Established: Established Patient (seen at [facility] within 3 years) Reason for Visit:: OB Seen by Clinical Staff ONLY (RN/MA): No Food Safety Technician Required: No Do You Feel Safe at Home: Yes Authorities Contacted: N/A PCP or OBGYN visit in last 3 months: Yes Date of Last PCP or OBGYN visit: 07/19/25 Hx Now: Yes Pain Present Currently: No Pain Scale Used: Sy-Savage/Numerical Pain scale:: 0 Smoking Status Smoking Status: Never smoker Questionnaires Covid-19 Vaccine Questionnaire Has patient been vacinated for Covid-19 Have you been vacinated for Covid-19: Yes PHQ-9 PHQ-2 Over the last 2 weeks, how often have you been bothered by any of the following problems? 1. Little interest or pleasure in doing things: not at all 2. Feeling down, depressed, or hopeless: not at all Total score: 0 PHQ-9 3. Trouble falling or staying asleep, or sleeping too much: Not at all 4. Feeling tired or having little energy: Not at all 5. Poor appetite or overeating: Not at all 6. Feeling bad about yourself - or that you are a failure or have let yourself or your family down: Not at all 7. Trouble concentrating on things, such as reading the newspaper or watching television: Not at all 8. Moving or speaking so slowly that other people could have noticed? - Or the opposite - being so fidgety or restless that you have been moving around a lot more than usual: not at all 9. Thoughts that you would be better off or of hurting yourself in some way: Not at all Total score: 0 If you checked off any problems, how difficult have these problems made it for you to do your work, take care of things at home, or get along with other people?: not difficult at all Source: Developed by Drs. Tavon Peters, Alondra Gaitan, Ulises Amezquita and colleagues, with an educational meliza from [employer]. 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 Her is in IT . 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 Medical History Past Medical History: No Hx Hypothyroidism, No Hx Hyperthyroidism, No Hx Breast Cancer, No Hx Hypertension, No Hx Anemia, No Hx Renal Disease, No Hx Deep Vein Thrombosis, No Hx Diabetes Mellitus Type 1, No Hx Diabetes Mellitus Type 2 and No Hx Polycystic Ovarian Syndrome Care OB Visit Log OB Flowsheet Initial Weight: 80 kg Date -?-?-?-?-?-?-?-?-?-?-?-?- EGA Weight BP Alb Glu CTX Pres Fundal ht FHR Mov Dilation Station Effacement Hx Notes Visit Note 01/07/25 -?-?-?-?-?-?-?-?-?-?-?-?- 7w 3d 80.456 kg (+455.946 g) 105/67 140 02/09/25 -?-?-?-?-?-?-?-?-?-?-?-?- 12w 1d 81.363 kg (+1363.131 g) 110/72 145 03/16/25 -?-?-?-?-?-?-?-?-?-?-?-?- 17w 1d 82.27 kg (+2270.316 g) 113/71 140 active 04/13/25 -?-?-?-?-?-?-?-?-?-?-?-?- 21w 1d 84.482 kg (+4481.579 g) 104/72 137 active Patient reports flutter. No vaginal bleeding no discharge. Structura l survey reviewed and normal. 05/04/25 -?-?-?-?-?-?-?-?-?-?-?-?- 24w 1d 84.141 kg (+4141.384 g) 96/62 145 active Positive movement no loss of fluids no vaginal bleeding Glucose chal lenge test order from [facility] 06/02/25 -?-?-?-?-?-?-?-?-?-?-?-?- 28w 2d 86.239 kg (+6239.249 g) 100/68 absent unknown 28 156 act kristin Denies OB complaints. Reports good movement. Patient completed 3-hour GTT. OB panel today. Increase fluids. Discussed weight gain and 3-hour GTT results results. Decrease sugary foods. Continue prenatals. Return in 3 weeks with OB for OB check 06/29/25 -?-?-?-?-?-?-?-?-?-?-?-?- 32w 1d 86.636 kg (+6636.142 g) 112/75 absent cephalic 34 132 ac tive +FM No UCs No LOF Ordered ultrasound for size greater than dates at [facility] in [place]. 07/19/25 -?-?-?-?-?-?-?-?-?-?-?-?- 35w 0d 88.224 kg (+8223.716 g) 108/72 occasional cephalic 35 145 active Good movement no contractions no loss of fluids Went to [facility] over the weekend she got dehydrated at her baby shower. They gave her fluids and check labs. They checked her cervix she was 1 cm. 07/27/25 -?-?-?-?-?-?-?-?-?-?-?-?- 36w 1d 88.621 kg (+8620.609 g) 115/77 occasional cephalic 36 156 active 1 -2 70 Good FM No UCs or VB GBBS done JENNIFER Calculator Estimated Delivery Date Method Current WG Current Estimate 10/07/25 LMP (Certain) 36w 1d Expected Delivery Route/Plan Patient is a G1, P0 anticipate Specific Issue/Plans labs drawn at [facility]. B+/antibody screen negative/rubella immune/RPR nonreactive/HIV negative/hepatitis B surface antigen negative/1 hour glucose elevated 148/3-hour glucose normal NIPT 46 XY Ultrasound [facility] [place] 07/12/2025 live IUP vertex presentation MICHELE 9.3 EFW 2318 which is about 5 pounds 10 ounces EDC 08/23/2025 Notes Visit Date: 07/27/25 Last Updated by: Peggy Perez (OB Clinic)MD Off work 08/03/25 GBBS cx done Visit Date: 07/19/25 Last Updated by: Peggy Perez (OB Clinic)MD Patient desires Tdap. Like to go off work at this time. To go natural and not get an epidural in labor if possible Visit Date: 06/29/25 Last Updated by: Peggy Perez (OB Clinic)MD Patient is present with her . She would like to collect her breastmilk and colostrum ahead of time. I recommended after 37 weeks. Patient with an ultrasound for size greater than dates. 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 We did labor. Patient is going to see how it goes she is open to epidural if needed. We discussed strep screen at 36 weeks. All questions were answered follow-up in 2 weeks. Visit Date: 06/02/25 Last Updated by: Yulia Marcial CNM 06/02/25: 3 hr gtt wnl Visit Date: 05/04/25 Last Updated by: Peggy Perez (OB Clinic)MD No labs available from [facility]. Pap GC chlamydia negative NIPT negative structural survey within normal limits EDC 08/24/2025 Visit Date: 04/13/25 Last Updated by: Peggy Perez (OB Clinic)MD Labs attempted to be obtained from [facility] and not available. Visit Date: 03/16/25 Last Updated by: Peggy Perez (OB Clinic)MD Patient denies any vaginal bleeding or cramping she is still sensitive to smells. She is 17 weeks today and doing her NIPT. She did have her labs done at [facility] and we cannot pull these up at this time. She reports tension headache did discuss Tylenol magnesium and frequent eating also patient is okay to drink a coffee in the morning. She has stopped all caffeine. Structural survey was ordered. Visit Date: 02/09/25 Last Updated by: Peggy Perez (OB Clinic)MD Patient is doing well getting some energy back still not a lot of appetite. Father the baby is at bedside. They both desire NIPT and we have to authorize for this. Her labs were drawn at [facility] and we will try to get a hold of them to review them for the patient. Office Procedures OB Clinic LOC & Office Proc's Nursing/Assessment Patient Status: Established Patient OB Clinic Nursing Assessment: Medication Reconciliation, Update PMH in EMR and V ital Signs OB Clinic Coordination of Care: Education Complex Pt/Fam, Consent,records obtained, informed consent, Lab and Imaging orders and Staff clarify orders Special Needs: Heart tones Established Patient Charge Established Patient Point Assignment: 110 Established Patient Point Charge: EP Level 3 (80-115) Assessment & Plan Diagnosis / Problem List (1) : Status: Acute Qualifiers: Weeks of gestation: 36 weeks Qualified Code(s): Z3A.36 - 36 weeks gest ation of
== END 2025-07-27 14:15 | disposition home or self-care (01) ==
LOC: HODSOBC 10:54
PROVIDERS: Supervising Provider Obstetrics & Gynecology; Visit Provider Obstetrics & Gynecology
DX: Z34.03 Encounter for supervision of normal first pregnancy, third trimester (principal); Z36.85 Encounter for antenatal screening for Streptococcus B; Z3A.36 36 weeks gestation of pregnancy
CPT/HCPCS: 99213; G0463

== ENCOUNTER 2025-08-05 09:48 | Outpatient (AMB) | payer BC, SELFPAY ==
--- NOTE | 2025-08-05 09:57 | OBCLNT_ITS ---
Vital Signs 08/05/25 10:06 Height 1.52 m Height Method Stated Weight 89.528 kg Weight Measurement Method Standing Scale BMI 38.7 BP 108/73 Blood Pressure Source Automatic Cuff Blood Pressure Location Left Upper Arm Position Sitting Respiration 18 Pulse 97 Pulse Source Monitor Temp 97.8 F Temp Source Oral Pulse Oximetry (%) 97 Oxygen Delivery Method Room Air Allergies/Home Meds Allergies & Medications Allergies No Known Allergies Allergy (Verified 08/05/25 10:07) Medication Reconciliation omega 0-lru-upa-fish oil 100 mg-160 mg-1,000 mg capsule (Fish Oil) cap PO 01/07/25 [History Confirmed 08/05/25] vits 75-iron 28 mg-folic acid 800 mcg-omega-3 oral combo pack (One A Day Women's DHA) pkg PO 01/07/25 [History Confirmed 08/05/25] Intake Visit Data Collection New Patient or Established: Established Patient (seen at [facility] within 3 years) Reason for Visit:: CARE Seen by Clinical Staff ONLY (RN/MA): No Apartment Manager Required: No Do You Feel Safe at Home: Yes Authorities Contacted: N/A PCP or OBGYN visit in last 3 months: Yes Hx Now: Yes Are you currently on any form of Control: No Pain Present Currently: No Pain Scale Used: Sy-Savage/Numerical Pain scale:: 0 Smoking Status Smoking Status: Never smoker Questionnaires Covid-19 Vaccine Questionnaire Has patient been vacinated for Covid-19 Have you been vacinated for Covid-19: Yes PHQ-9 PHQ-2 Over the last 2 weeks, how often have you been bothered by any of the following problems? 1. Little interest or pleasure in doing things: not at all 2. Feeling down, depressed, or hopeless: not at all Total score: 0 PHQ-9 3. Trouble falling or staying asleep, or sleeping too much: Not at all 4. Feeling tired or having little energy: Not at all 5. Poor appetite or overeating: Not at all 6. Feeling bad about yourself - or that you are a failure or have let yourself or your family down: Not at all 7. Trouble concentrating on things, such as reading the newspaper or watching television: Not at all 8. Moving or speaking so slowly that other people could have noticed? - Or the opposite - being so fidgety or restless that you have been moving around a lot more than usual: not at all 9. Thoughts that you would be better off or of hurting yourself in some way: Not at all Total score: 0 Source: Developed by Drs. Tavon Peters, Alondra Gaitan, Ulises Amezquita and colleagues, with an educational meliza from [employer]. 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 Past Medical History: No Hx Hypothyroidism, No Hx Hyperthyroidism, No Hx Breast Cancer, No Hx Hypertension, No Hx Anemia, No Hx Renal Disease, No Hx Deep Vein Thrombosis, No Hx Diabetes Mellitus Type 1, No Hx Diabetes Mellitus Type 2 and No Hx Polycystic Ovarian Syndrome Care OB Visit Log OB Flowsheet Initial Weight: 80 kg Date -?-?-?-?-?-?-?-?-?-?-?-?- EGA Weight BP Alb Glu CTX Pres Fundal ht FHR Mov Dilation Station Effacement Hx Notes Visit Note 01/07/25 -?-?-?-?-?-?-?-?-?-?-?-?- 7w 3d 80.456 kg (+455.946 g) 105/67 140 02/09/25 -?-?-?-?-?-?-?-?-?-?-?-?- 12w 1d 81.363 kg (+1363.131 g) 110/72 145 03/16/25 -?-?-?-?-?-?-?-?-?-?-?-?- 17w 1d 82.27 kg (+2270.316 g) 113/71 140 active 04/13/25 -?-?-?-?-?-?-?-?-?-?-?-?- w 1d 84.482 kg (+4481.579 g) 104/72 137 active Patient reports flutter. No vaginal bleeding no discharge. Structura l survey reviewed and normal. 05/04/25 -?-?-?-?-?-?-?-?-?-?-?-?- 24w 1d 84.141 kg (+4141.384 g) 96/62 145 active Positive movement no loss of fluids no vaginal bleeding Glucose chal lenge test order from [facility] 06/02/25 -?-?-?-?-?-?-?-?-?-?-?-?- 28w 2d 86.239 kg (+6239.249 g) 100/68 absent unknown 28 156 act kristin Denies OB complaints. Reports good movement. Patient completed 3-hour GTT. OB panel today. Increase fluids. Discussed weight gain and 3-hour GTT results results. Decr ease sugary foods. Continue prenatals. Return in 3 weeks with OB for OB check 06/29/25 -?-?-?-?-?-?-?-?-?-?-?-?- 32w 1d 86.636 kg (+6636.142 g) 112/75 absent cephalic 34 132 ac tive +FM No UCs No LOF Ordered ultrasound for size greater than dates at [facility] in [place]. 07/19/25 -?-?-?-?-?-?-?--?-?-?-?-?- 35w 0d 88.224 kg (+8223.716 g) 108/72 occasional cephalic 35 145 active Good movement no contractions no loss of fluids Went to [facility] over the weekend she got dehydrated at her baby shower. They gave her fluids and check labs. They checked her cervix she was 1 cm. 07/27/25 -?-?-?-?-?-?--?-?-?-?-?-?- 36w 1d 88.621 kg (+8620.609 g) 115/77 occasional cephalic 36 156 active 1 -2 70 Good FM No UCs or VB GBBS done 08/05/25 -?-?-?-?-?-?-?-?-?-?-?-?- 37w 3d 89.528 kg (+9527.794 g) 108/73 occasional cephalic 37 136 active Good movement no contractions no vaginal bleeding. Declined exam today. +GBBS JENNIFER Calculator Estimated Delivery Date Method Current WG Current Estimate 08/23/25 LMP (Certain) 37w 3d Expected Delivery Route/Plan Patient is a G1, P0 anticipate Specific Issue/Plans labs drawn at [facility]. B+/antibody screen negative/rubella immune/RPR nonreactive/HIV negative/hepatitis B surface antigen negative/1 hour glucose elevated 148/3-hour glucose normal NIPT 46 XY Ultrasound [facility] [place] 07/12/2025 live IUP vertex presentation MICHELE 9.3 EFW 2318 which is about 5 pounds 10 ounces EDC 08/23/2025 Notes Visit Date: 08/05/25 Last Updated by: Peggy Perez (OB Clinic)MD Positive group B strep. Patient is not allergic to penicillin. The strep is resistant to clindamycin. Penicillin is drug of choice for group B strep. Patient is aware. Visit Date: 07/27/25 Last Updated by: Peggy Perez (OB Clinic)MD Off work 08/03/25 GBBS cx done Visit Date: 07/19/25 Last Updated by: Peggy Perez (OB Clinic)MD Patient desires Tdap. Like to go off work at this time. To go natural and not get an epidural in labor if possible Visit Date: 06/29/25 Last Updated by: Peggy Perez (OB Clinic)MD Patient is present with her . She would like to collect her breastmilk and colostrum ahead of time. I recommended after 37 weeks. Patient with an ultrasound for size greater than dates. 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 We did labor. Patient is going to see how it goes she is open to epidural if needed. We discussed strep screen at 36 weeks. All questions were answered follow-up in 2 weeks. Visit Date: 06/02/25 Last Updated by: Yulia Marcial CNM 06/02/25: 3 hr gtt wnl Visit Date: 05/04/25 Last Updated by: Peggy Perez (OB Clinic)MD No labs available from [facility]. Pap GC chlamydia negative NIPT negative structural survey within normal limits EDC 08/24/2025 Visit Date: 04/13/25 Last Updated by: Peggy Perez (OB Clinic)MD Labs attempted to be obtained from [facility] and not available. Visit Date: 03/16/25 Last Updated by: Peggy Perez (OB Clinic)MD Patient denies any vaginal bleeding or cramping she is still sensitive to smells. She is 17 weeks today and doing her NIPT. She did have her labs done at [facility] and we cannot pull these up at this time. She reports tension headache did discuss Tylenol magnesium and frequent eating also patient is okay to drink a coffee in the morning. She has stopped all caffeine. Structural survey was ordered. Visit Date: 02/09/25 Last Updated by: Peggy Perez (OB Clinic)MD Patient is doing well getting some energy back still not a lot of appetite. Father the baby is at bedside. They both desire NIPT and we have to authorize for this. Her labs were drawn at [facility] and we will try to get a hold of them to review them for the patient. Office Procedures OB Clinic LOC & Office Proc's Nursing/Assessment Patient Status: Established Patient OB Clinic Nursing Assessment: Medication Reconciliation, Update PMH in EMR and Vital Signs OB Clinic Coordination of Care: Complex Care and Chronic Disease 1-5, Consent,records obtained, informed consent, Education Simp Pt/Fam, Lab and Imaging orders, Results/Orders obtained and Staff clarify orders Special Needs: Heart tones Established Patient Charge Established Patient Point Assignment: 135 Established Patient Point Charge: EP Level 4 (120-155) Assessment & Plan Diagnosis / Problem List (1) Encounter for supervision of normal first , third trimester: Status: Acute (2) : Status: Acute Qualifiers: Weeks of gestation: 37 weeks Qualified Code(s): Z3A.37 - 37 weeks gestation of
[2025-08-05 10:06] VITALS: BP 108/73; PULSE 97; RESP 18; TEMP 36.6; O2SAT 97; BMI 38.7
== END 2025-08-05 11:21 | disposition home or self-care (01) ==
LOC: HODSOBC 09:48
PROVIDERS: Supervising Provider Obstetrics & Gynecology; Visit Provider Obstetrics & Gynecology
DX: O09.893 Supervision of other high risk pregnancies, third trimester (principal); O99.820 Streptococcus B carrier state complicating pregnancy; Z3A.37 37 weeks gestation of pregnancy
CPT/HCPCS: 99214; G0463

== ENCOUNTER 2025-08-10 08:49 | Outpatient (AMB) | payer BC, SELFPAY ==
[2025-08-10 09:05] VITALS: BP 114/78; PULSE 106; RESP 20; TEMP 36.4; O2SAT 98; BMI 38.9
--- NOTE | 2025-08-10 09:05 | OBCLNT_ITS ---
Vital Signs 08/10/25 09:05 Height 1.52 m Height Method Stated Weight 90.038 kg Weight Measurement Method Standing Scale BMI 38.9 BP 114/78 Blood Pressure Source Automatic Cuff Blood Pressure Location Left Upper Arm Position Sitting Respiration 20 Pulse 106 H Pulse Source Monitor Temp 97.6 F Temp Source Oral Pulse Oximetry (%) 98 Oxygen Delivery Method Room Air Allergies/Home Meds Allergies & Medications Allergies No Known Allergies Allergy (Verified 08/10/25 09:06) Medication Reconciliation omega 9-fcl-cdn-fish oil 100 mg-160 mg-1,000 mg capsule (Fish Oil) cap PO 01/07/25 [History Confirmed 08/10/25] vits 75-iron 28 mg-folic acid 800 mcg-omega-3 oral combo pack (One A Day Women's DHA) pkg PO 01/07/25 [History Confirmed 08/10/25] Intake Visit Data Collection New Patient or Established: Established Patient (seen at [facility] within 3 years) Reason for Visit:: CARE Seen by Clinical Staff ONLY (RN/MA): No Material Control Analyst Required: No Do You Feel Safe at Home: Yes Authorities Contacted: N/A PCP or OBGYN visit in last 3 months: Yes Hx Now: Yes Are you currently on any form of Control: No Pain Present Currently: No Pain Scale Used: Sy-Savage/Numerical Pain scale:: 0 Smoking Status Smoking Status: Never smoker Questionnaires Covid-19 Vaccine Questionnaire Has patient been vacinated for Covid-19 Have you been vacinated for Covid-19: Yes PHQ-9 PHQ-2 Over the last 2 weeks, how often have you been bothered by any of the following problems? 1. Little interest or pleasure in doing things: not at all 2. Feeling down, depressed, or hopeless: not at all Total score: 0 PHQ-9 3. Trouble falling or staying asleep, or sleeping too much: Not at all 4. Feeling tired or having little energy: Not at all 5. Poor appetite or overeating: Not at all 6. Feeling bad about yourself - or that you are a failure or have let yourself or your family down: Not at all 7. Trouble concentrating on things, such as reading the newspaper or watching television: Not at all 8. Moving or speaking so slowly that other people could have noticed? - Or the opposite - being so fidgety or restless that you have been moving around a lot more than usual: not at all 9. Thoughts that you would be better off or of hurting yourself in some way: Not at all Total score: 0 Source: Developed by Drs. Tavon Peters, Alondra Gaitan, Ulises Amezquita and colleagues, with an educational meliza from [employer]. 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 Past Medical History: No Hx Hypothyroidism, No Hx Hyperthyroidism, No Hx Breast Cancer, No Hx Hypertension, No Hx Anemia, No Hx Renal Disease, No Hx Deep Vein Thrombosis, No Hx Diabetes Mellitus Type 1, No Hx Diabetes Mellitus Type 2 and No Hx Polycystic Ovarian Syndrome Care OB Visit Log OB Flowsheet Initial Weight: 80 kg Date -?-?-?-?-?-?-?-?-?-?-?-?- EGA Weight BP Alb Glu CTX Pres Fundal ht FHR Mov Dilation Station Effacement Hx Notes Visit Note 01/07/25 -?-?-?-?-?-?-?-?-?-?-?-?- 7w 3d 80.456 kg (+455.946 g) 105/67 140 02/09/25 -?-?-?-?-?-?-?-?-?-?-?-?- 12w 1d 81.363 kg (+1363.131 g) 110/72 145 03/16/25 -?-?-?-?-?-?-?-?-?-?-?-?- 17w 1d 82.27 kg (+2270.316 g) 113/71 140 active 04/13/25 -?-?-?-?-?-?-?-?-?-?-?-?- w 1d 84.482 kg (+4481.579 g) 104/72 137 active Patient reports flutter. No vaginal bleeding no discharge. Structura l survey reviewed and normal. 05/04/25 -?-?-?-?-?-?-?-?-?--?-?-?- 24w 1d 84.141 kg (+4141.384 g) 96/62 145 active Positive movement no loss of fluids no vaginal bleeding Glucose chal lenge test order from [facility] 06/02/25 -?-?-?-?-?-?-?-?-?-?-?-?- 28w 2d 86.239 kg (+6239.249 g) 100/68 absent unknown 28 156 act kristin Denies OB complaints. Reports good movement. Patient completed 3-hour GTT. OB panel today. Increase fluids. Discussed weight gain and 3-hour GTT results results. D ecrease sugary foods. Continue prenatals. Return in 3 weeks with OB for OB check 06/29/25 -?-?-?-?-?-?-?-?-?-?-?-?- 32w 1d 86.636 kg (+6636.142 g) 112/75 absent cephalic 34 132 ac tive +FM No UCs No LOF Ordered ultrasound for size greater than dates at [facility] in [place]. 07/19/25 -?-?-?-?--?-?-?-?-?-?-?-?- 35w 0d 88.224 kg (+8223.716 g) 108/72 occasional cephalic 35 145 active Good movement no contractions no loss of fluids Went to [facility] over the weekend she got dehydrated at her baby shower. They gave her fluids and check labs. They checked her cervix she was 1 cm. 07/27/25 -?-?-?--?-?-?-?-?-?-?-?-?- 36w 1d 88.621 kg (+8620.609 g) 115/77 occasional cephalic 36 156 active 1 -2 70 Good FM No UCs or VB GBBS done 08/05/25 -?-?-?-?-?-?-?-?-?-?-?-?- 37w 3d 89.528 kg (+9527.794 g) 108/73 occasional cephalic 37 136 active Good movement no contractions no vaginal bleeding. Declined exam today. +GBBS 08/10/25 -?-?-?-?-?-?-?-?-?-?-?-?- 38w 1d 90.038 kg (+10.038 kg) 114/78 occasional cephalic 36 146 active 1 -2 70 Good movement no significant contractions loss of fluid or vaginal bleeding Kick counts and labor precautions JENNIFER Calculator Estimated Delivery Date Method Current WG Current Estimate 08/23/25 LMP (Certain) 38w 1d Expected Delivery Route/Plan Patient is a G1, P0 anticipate Specific Issue/Plans labs drawn at [facility]. B+/antibody screen negative/rubella immune/RPR nonreactive/HIV negative/hepatitis B surface antigen negative/1 hour glucose elevated 148/3-hour glucose normal NIPT 46 XY Ultrasound [facility] [place] 07/12/2025 live IUP vertex presentation MICHELE 9.3 EFW 2318 which is about 5 pounds 10 ounces EDC 08/23/2025 Notes Visit Date: 08/10/25 Last Updated by: Peggy Perez ([facility] Clinic)MD Labor precautions Visit Date: 08/05/25 Last Updated by: Peggy Perez (OB Clinic)MD Positive group B strep. Patient is not allergic to penicillin. The strep is resistant to clindamycin. Penicillin is drug of choice for group B strep. Patient is aware. Visit Date: 07/27/25 Last Updated by: Peggy Nielsen[facility])MD Off work 08/03/25 GBBS cx done Visit Date: 07/19/25 Last Updated by: Peggy Perez (OB Clinic)MD Patient desires Tdap. Like to go off work at this time. To go natural and not get an epidural in labor if possible Visit Date: 06/29/25 Last Updated by: Peggy Perez (OB Clinic)MD Patient is present with her . She would like to collect her breastmilk and colostrum ahead of time. I recommended after 37 weeks. Patient with an ultrasound for size greater than dates. 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 We did labor. Patient is going to see how it goes she is open to epidural if needed. We discussed strep screen at 36 weeks. All questions were answered follow-up in 2 weeks. Visit Date: 06/02/25 Last Updated by: Yulia Marcial CNM 06/02/25: 3 hr gtt wnl Visit Date: 05/04/25 Last Updated by: Peggy Perez (OB Clinic)MD No labs available from [facility]. Pap GC chlamydia negative NIPT negative structural survey within normal limits EDC 08/24/2025 Visit Date: 04/13/25 Last Updated by: Peggy Perez (OB Clinic)MD Labs attempted to be obtained from [facility] and not available. Visit Date: 03/16/25 Last Updated by: Peggy Perez (OB Clinic)MD Patient denies any vaginal bleeding or cramping she is still sensitive to smells. She is 17 weeks today and doing her NIPT. She did have her labs done at [facility] and we cannot pull these up at this time. She reports tension headache did discuss Tylenol magnesium and frequent eating also patient is okay to drink a coffee in the morning. She has stopped all caffeine. Structural survey was ordered. Visit Date: 02/09/25 Last Updated by: Peggy Perez (OB Clinic)MD Patient is doing well getting some energy back still not a lot of appetite. Father the baby is at bedside. They both desire NIPT and we have to authorize for this. Her labs were drawn at [facility] and we will try to get a hold of them to review them for the patient. Office Procedures OBC Clinic LOC & Office Proc's Nursing/Assessment Patient Status: Established Patient OB Clinic Nursing Assessment: Medication Reconciliation, Update PMH in EMR and Vital Signs OB Clinic Coordination of Care: Complex Care and Chronic Disease 1-5, Consent,records obtained, informed consent, Education Simp Pt/Fam, Lab and Imaging orders, Results/Orders obtained and Staff clarify orders Special Needs: Heart tones Miscellaneous Interventions: Pelvic no cultures Established Patient Charge Established Patient Point Assignment: 145 Established Patient Point Charge: EP Level 4 (120-155) Assessment & Plan Diagnosis / Problem List (1) : Status: Acute Qualifiers: Weeks of gestation: 37 weeks Qualified Code(s): Z3A.37 - 37 weeks gestation of (2) Mother positive for group B Streptococcus colonization: Status: Acute Plan: Penicillin in labor.
== END 2025-08-10 10:20 | disposition home or self-care (01) ==
LOC: HODSOBC 08:49
PROVIDERS: Supervising Provider Obstetrics & Gynecology; Visit Provider Obstetrics & Gynecology
DX: O09.893 Supervision of other high risk pregnancies, third trimester (principal); O99.820 Streptococcus B carrier state complicating pregnancy; Z3A.38 38 weeks gestation of pregnancy
CPT/HCPCS: 99214; G0463

== ENCOUNTER 2025-08-17 08:26 | Outpatient (AMB) | payer BC, SELFPAY ==
[2025-08-17 08:38] VITALS: BP 114/76; PULSE 98; RESP 16; TEMP 36.2; O2SAT 98; BMI 38.1
--- NOTE | 2025-08-17 08:38 | OBCLNT_ITS ---
Vital Signs 08/17/25 08:38 Height 1.52 m Height Method Stated Weight 88.054 kg Weight Measurement Method Standing Scale BMI 38.1 BP 114/76 Blood Pressure Source Automatic Cuff Blood Pressure Location Left Upper Arm Position Sitting Respiration 16 Pulse 98 Pulse Source Monitor Temp 97.2 F Temp Source Oral Pulse Oximetry (%) 98 Oxygen Delivery Method Room Air Allergies/Home Meds Allergies & Medications Allergies No Known Allergies Allergy (Verified 08/17/25 08:39) Medication Reconciliation omega 7-hdl-wtk-fish oil 100 mg-160 mg-1,000 mg capsule (Fish Oil) cap PO 01/07/25 [History Confirmed 08/17/25] vits 75-iron 28 mg-folic acid 800 mcg-omega-3 oral combo pack (One A Day Women's DHA) pkg PO 01/07/25 [History Confirmed 08/17/25] Intake Visit Data Collection New Patient or Established: Established Patient (seen at [facility] within 3 years) Reason for Visit:: OBC Seen by Clinical Staff ONLY (RN/MA): No Outbound Sales Representative Required: No Do You Feel Safe at Home: Yes Authorities Contacted: N/A PCP or OBGYN visit in last 3 months: Yes Date of Last PCP or OBGYN visit: 08/10/25 Hx Now: Yes Are you currently on any form of Control: No Pain Present Currently: No Pain Scale Used: Sy-Savage/Numerical Pain scale:: 0 Smoking Status Smoking Status: Never smoker Questionnaires Covid-19 Vaccine Questionnaire Has patient been vacinated for Covid-19 Have you been vacinated for Covid-19: Yes PHQ-9 PHQ-2 Over the last 2 weeks, how often have you been bothered by any of the following problems? 1. Little interest or pleasure in doing things: not at all 2. Feeling down, depressed, or hopeless: not at all Total score: 0 PHQ-9 3. Trouble falling or staying asleep, or sleeping too much: Not at all 4. Feeling tired or having little energy: Not at all 5. Poor appetite or overeating: Not at all 6. Feeling bad about yourself - or that you are a failure or have let yourself or your family down: Not at all 7. Trouble concentrating on things, such as reading the newspaper or watching television: Not at all 8. Moving or speaking so slowly that other people could have noticed? - Or the opposite - being so fidgety or restless that you have been moving around a lot more than usual: not at all 9. Thoughts that you would be better off or of hurting yourself in some way: Not at all Total score: 0 If you checked off any problems, how difficult have these problems made it for you to do your work, take care of things at home, or get along with other people?: not difficult at all Source: Developed by Drs. Tavon Peters, Alondra Gaitan, Ulises Amezquita and colleagues, with an educational meliza from [employer]. 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 Past Medical History: No Hx Hypothyroidism, No Hx Hyperthyroidism, No Hx Breast Cancer, No Hx Hypertension, No Hx Anemia, No Hx Renal Disease, No Hx Deep Vein Thrombosis, No Hx Diabetes Mellitus Type 1, No Hx Diabetes Mellitus Type 2 and No Hx Polycystic Ovarian Syndrome Care OB Visit Log OB Flowsheet Initial Weight: 80 kg Date -?-?-?-?-?-?-?-?-?-?-?-?- EGA Weight BP Alb Glu CTX Pres Fundal ht FHR Mov Dilation Station Effacement Hx Notes Visit Note 01/07/25 -?-?-?-?-?-?-?-?-?-?-?-?- 7w 3d 80.456 kg (+455.946 g) 105/67 140 02/09/25 -?-?-?-?-?-?-?-?-?-?-?-?- 12w 1d 81.363 kg (+1363.131 g) 110/72 145 03/16/25 -?-?-?-?-?-?-?-?-?-?-?-?- 17w 1d 82.27 kg (+2270.316 g) 113/71 140 active 04/13/25 -?-?-?-?-?-?-?-?-?-?-?-?- 21w 1d 84.482 kg (+4481.579 g) 104/72 137 active Patient reports flutter. No vaginal bleeding no discharge. Structura l survey reviewed and normal. 05/04/25 -?-?-?-?-?-?-?-?-?-?-?-?- 24w 1d 84.141 kg (+4141.384 g) 96/62 145 active Positive movement no loss of fluids no vaginal bleeding Glucose chal lenge test order from [facility] 06/02/25 -?-?-?-?-?-?-?-?-?-?-?-?- 28w 2d 86.239 kg (+6239.249 g) 100/68 absent unknown 28 156 act kristin Denies OB complaints. Reports good movement. Patient completed 3-hour GTT. OB panel today. Increase fluids. Discussed weight gain and 3-hour GTT results results. Decrease sugary foods. Continue prenatals. Return in 3 weeks with OB for OB check 06/29/25 -?-?-?-?-?-?-?-?-?-?-?-?- 32w 1d 86.636 kg (+6636.142 g) 112/75 absent cephalic 34 132 ac tive +FM No UCs No LOF Ordered ultrasound for size greater than dates at [facility] in [place]. 07/19/25 -?-?-?-?-?-?-?-?-?-?-?-?- 35w 0d 88.224 kg (+8223.716 g) 108/72 occasional cephalic 35 145 active Good movement no contractions no loss of fluids Went to [facility] over the weekend she got dehydrated at her baby shower. They gave her fluids and check labs. They c hecked her cervix she was 1 cm. 07/27/25 -?-?-?-?-?-?-?-?-?-?-?-?- 36w 1d 88.621 kg (+8620.609 g) 115/77 occasional cephalic 36 156 active 1 -2 70 Good FM No UCs or VB GBBS done 08/05/25 -?-?-?-?-?-?-?-?-?-?-?-?- 37w 3d 89.528 kg (+9527.794 g) 108/73 occasional cephalic 37 136 active Good movement no contractions no vaginal bleeding. Declined exam today. +GBBS 08/10/25 -?-?-?-?-?-?-?-?-?-?-?-?- 38w 1d 90.038 kg (+10.038 kg) 114/78 occasional cephalic 36 146 active 1 -2 70 Good movement no significant contractions loss of fluid or vaginal bleeding Kick counts and labor precautions 08/17/25 -?-?-?-?-?-?-?-?-?-?-?-?- 39w 1d 88.054 kg (+8053.618 g) 114/76 occasional cephalic 36 137 active 2 -1 80 Good movement. Passed mucous plug. Feels contractions. Not enough to wake her up at night. Kick counts labo r precautions. Cervix very posterior. Follow-up in 1 week. JENNIFER Calculator Estimated Delivery Date Method Current WG Current Estimate 08/23/25 LMP (Certain) 39w 1d Expected Delivery Route/Plan Patient is a G1, P0 anticipate Specific Issue/Plans labs drawn at [facility]. B+/antibody screen negative/rubella immune/RPR nonreactive/HIV negative/hepatitis B surface antigen negative/1 hour glucose elevated 148/3-hour glucose normal NIPT 46 XY Ultrasound [facility] 07/12/2025 live IUP vertex presentation MICHELE 9.3 EFW 2318 which is about 5 pounds 10 ounces EDC 08/23/2025 Notes Visit Date: 08/17/25 Last Updated by: Peggy Perez ([facility] Clinic)MD Patient aware group B strep is positive. Visit Date: 08/10/25 Last Updated by: Peggy Perez ([facility] Clinic)MD Labor precautions Visit Date: 08/05/25 Last Updated by: Peggy Perez ([facility] Clinic)MD Positive group B strep. Patient is not allergic to penicillin. The strep is resistant to clindamycin. Penicillin is drug of choice for group B strep. Patient is aware. Visit Date: 07/27/25 Last Updated by: Peggy Perez ([facility] Clinic)MD Off work 08/03/25 GBBS cx done Visit Date: 07/19/25 Last Updated by: Peggy Perez ([facility])MD Patient desires Tdap. Like to go off work at this time. To go natural and not get an epidural in labor if possible Visit Date: 06/29/25 Last Updated by: Peggy Perez ([facility] Clinic)MD Patient is present with her . She would like to collect her breastmilk and colostrum ahead of time. I recommended after 37 weeks. Patient with an ultrasound for size greater than dates. 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 We did labor. Patient is going to see how it goes she is open to epidural if needed. We discussed strep screen at 36 weeks. All questions were answered follow-up in 2 weeks. Visit Date: 06/02/25 Last Updated by: Yulia Marcial CNM 06/02/25: 3 hr gtt wnl Visit Date: 05/04/25 Last Updated by: Peggy Perez ([facility] Clinic)MD No labs available from [facility]. Pap GC chlamydia negative NIPT negative structural survey within normal limits EDC 08/24/2025 Visit Date: 04/13/25 Last Updated by: Peggy Perez (OB Clinic)MD Labs attempted to be obtained from [facility] and not available. Visit Date: 03/16/25 Last Updated by: Peggy Perez (OB Clinic)MD Patient denies any vaginal bleeding or cramping she is still sensitive to smells. She is 17 weeks today and doing her NIPT. She did have her labs done at [facility] and we cannot pull these up at this time. She reports ten alissa headache did discuss Tylenol magnesium and frequent eating also patient is okay to drink a coffee in the morning. She has stopped all caffeine. Structural survey was ordered. Visit Date: 02/09/25 Last Updated by: Peggy Perez ([facility] Clinic)MD Patient is doing well getting some energy back still not a lot of appetite. Father the baby is at bedside. They both desire NIPT and we have to authorize for this. Her labs were drawn at [facility] and we will try to get a hold of them to review them for the patient. Office Procedures OBC Clinic LOC & Office Proc's Nursing/Assessment Patient Status: Established Patient OB Clinic Nursing Assessment: Medication Reconciliation, Update PMH in EMR and Vital Signs OB Clinic Coordination of Care: Education Complex Pt/Fam, Consent,records obtained, informed consent, Lab and Imaging orders, Results/Orders obtained and Staff clarify orders Special Needs: Heart tones Established Patient Charge Established Patient Point Assignment: 115 Established Patient Point Charge: EP Level 3 (80-115) Assessment & Plan Diagnosis / Problem List (1) Mother positive for group B Streptococcus colonization: Status: Acute (2) : Status: Acute Qualifiers: Weeks of gestation: 39 weeks Qualified Code(s): Z3A.39 - 39 weeks gestation of
== END 2025-08-17 09:25 | disposition home or self-care (01) ==
LOC: HODSOBC 08:26
PROVIDERS: Supervising Provider Obstetrics & Gynecology; Visit Provider Obstetrics & Gynecology
DX: O09.893 Supervision of other high risk pregnancies, third trimester (principal); O99.820 Streptococcus B carrier state complicating pregnancy; Z3A.39 39 weeks gestation of pregnancy
CPT/HCPCS: 99213; G0463

== ENCOUNTER 2025-08-17 22:21 | Observation (INO) | payer BC, SELFPAY ==
[2025-08-17 22:30] VITALS: BP 120/76; PULSE 99; RESP 18; RESP 99; TEMP 36.6
[2025-08-17 22:32] VITALS: BP 120/76; PULSE 99
[2025-08-17 22:37] VITALS: BMI 39.2
== END 2025-08-17 23:50 | disposition home or self-care (01) ==
PROVIDERS: Admitting Provider Obstetrics & Gynecology; Visit Provider Obstetrics & Gynecology
DX: O47.1 False labor at or after 37 completed weeks of gestation (principal); Z3A.39 39 weeks gestation of pregnancy
CPT/HCPCS: 59025; 59899

== ENCOUNTER 2025-08-19 01:45 | Inpatient (IN) | payer BC, SELFPAY ==
[2025-08-19] VITALS (227 sets, daily range): BP systolic 73–135; BP diastolic 47–90; PULSE 75–127; RESP 16–99; TEMP 36.1–38.7; O2SAT 91–100; BMI 38.9
[2025-08-19 03:28] LABS: Basophils # (Auto) 0.0 Thou/mm3 (0.0-0.2); Basophils % (Auto) 0 % (0-2.5); Eosinophils # (Auto) 0.0 Thou/mm3 (0.0-0.5); Eosinophils % (Auto) 0 % (0-10); Hematocrit 35.9 % (36.0-46.0); Hemoglobin 12.3 g/dL (12.0-16.0); Immature Granulocytes Auto 0.12 Thou/mm3 (0.00-0.00); Lymphocytes # (Auto) 2.3 Thou/mm3 (1.0-4.8); Lymphocytes % (Auto) 11 % (10-50); Mean Corpuscular HGB Conc 34.3 g/dl (31.0-37.0); Mean Corpuscular Hemoglobin 29.2 pg (25.0-35.0); Mean Corpuscular Volume 85 fL (80-100); Monocytes # (Auto) 1.4 Thou/mm3 (0.0-0.8); Monocytes % (Auto) 7 % (0-12); Neutrophils # (Auto) 16.6 Thou/mm3 (1.8-7.7); Neutrophils % (Auto) 81 % (37-80); Nucleated Red Blood Cell # 0.00 Thou/mm3 (0.00-0.00); Nucleated Red Blood Cell % 0 /100 WBC (0); Platelet Count 232 Thou/mm3 (140-440); RDW Standard Deviation 41.2 fL (36.4-46.3); Red Blood Count 4.21 Miln/mm3 (4.00-5.20); White Blood Count 20.4 Thou/mm3 (3.6-11.0)
[2025-08-19] MEDS: RINGERS LACTATED 1000 ML 1,000 ML 100 ML IV ×3 (03:32→07:54)
[2025-08-19] MEDS: Ampicillin Inj 2,000 MG in SODIUM CHLORIDE 0.9% (POP) 100 ML 200 MG IV ×3 (03:55→18:17)
[2025-08-19] MEDS: fentaNYL CIT INJ 50 mCg/ML AMP 2ML 100 MCG IVP (04:23)
[2025-08-19 04:26] LABS: Syphilis Nonreactive (Nonreactive)
[2025-08-19] MEDS: Ampicillin Inj 1,000 MG in SODIUM CHLORIDE 0.9% (Popper) 50 ML 50 MG IV (07:54)
[2025-08-19] MEDS: GENTAMICIN/NS 80 MG IVPB 80 MG in PRE-MIXED 1 BAG 50 MG IV ×2 (11:25→20:57)
[2025-08-19 12:43] LABS: Lactate (Lactic Acid) 1.3 mMol/L (0.4-2.0)
[2025-08-19 12:44] LABS: Basophils # (Auto) 0.1 Thou/mm3 (0.0-0.2); Basophils % (Auto) 0 % (0-2.5); Eosinophils # (Auto) 0.0 Thou/mm3 (0.0-0.5); Eosinophils % (Auto) 0 % (0-10); Hematocrit 35.1 % (36.0-46.0); Hemoglobin 12.0 g/dL (12.0-16.0); Immature Granulocytes Auto 0.10 Thou/mm3 (0.00-0.00); Lymphocytes # (Auto) 2.2 Thou/mm3 (1.0-4.8); Lymphocytes % (Auto) 12 % (10-50); Mean Corpuscular HGB Conc 34.2 g/dl (31.0-37.0); Mean Corpuscular Hemoglobin 29.2 pg (25.0-35.0); Mean Corpuscular Volume 85 fL (80-100); Monocytes # (Auto) 1.1 Thou/mm3 (0.0-0.8); Monocytes % (Auto) 6 % (0-12); Neutrophils # (Auto) 15.7 Thou/mm3 (1.8-7.7); Neutrophils % (Auto) 82 % (37-80); Nucleated Red Blood Cell # 0.00 Thou/mm3 (0.00-0.00); Nucleated Red Blood Cell % 0 /100 WBC (0); Platelet Count 230 Thou/mm3 (140-440); RDW Standard Deviation 41.4 fL (36.4-46.3); Red Blood Count 4.11 Miln/mm3 (4.00-5.20); White Blood Count 19.1 Thou/mm3 (3.6-11.0)
--- NOTE | 2025-08-19 12:45 | PD.LDPN ---
Documentation for date of: 08/19/25 OB Labor Progress Note Pelvic Exam Dilation (cm): 4 Effacement (%): 50 station: -2 Amniotic membrane status: Ruptured Comments: Thin meconium Contractions Monitor mode: External Contraction frequency: 7-8 Contraction pattern: Coupling Contraction intensity: Mild Status status: Category ll Assessment and Plan Comments: AROM performed with thin meconium, head is well applied, exam is 4.5/50% IUPC and FSE placed Continue current plan, patient is still in the latent phase, Started antibiotics and sepsis protocol with weight-based fluid resuscitation and labs were sent off
[2025-08-19] MEDS: SODIUM CHLORIDE 0.9% 1000 ML 1,000 ML 999 ML IV ×2 (12:52→13:53)
[2025-08-19 13:04] LABS: Alanine Aminotransferase 11 U/L (10-49); Albumin, Serum 4.2 gm/dL (3.5-5.0); Albumin/Globulin Ratio 1.7 (1.2-2.2); Alkaline Phosphatase 130 U/L (46-116); Anion Gap 10 (7-16); Aspartate Amino Transferase 42 U/L (0-34); BUN/Creatinine Ratio 8 Ratio (12-20); Bilirubin,Total 0.9 mg/dL (0.3-1.2); Blood Urea Nitrogen < 5 mg/dL (9-23); Calcium 9.1 mg/dL (8.3-10.6); Calcium (Corrected) 9.1 mg/dL (8.5-10.1); Carbon Dioxide 23.3 mMol/L (20.0-31.0); Chloride 106 mMol/L (98-107); Creatinine (Component) 0.6 mg/dL (0.6-1.3); Estimated Creatinine Clearance 142.4 mL/min (>60); Globulin 2.5 gm/dL (2.3-3.5); Glucose 82 mg/dL (74-106); Osmolality,Calculated 273 (275-295); Potassium 3.5 mMol/L (3.4-5.1); Sodium 139 mMol/L (136-145); Total Protein 6.7 gm/dL (5.7-8.2); Troponin I < 0.002 ng/mL (0.0-0.045); eGFR > 60 See Note
[2025-08-19 13:07] LABS: B-Type Natriuretic Peptide 40 pg/mL (0-100)
[2025-08-19 14:19] LABS: INR 0.9 (0.9-1.3); Partial Thromboplastin Time 27.7 Seconds (22.0-36.0); Prothrombin Time 10.1 Seconds (9.0-12.2)
[2025-08-19] MEDS: ACETAMINOPHEN IVPB 1,000 MG/100 ML VIAL 250 MG IV (15:17)
--- NOTE | 2025-08-19 16:27 | PD.LDPN ---
Documentation for date of: 08/19/25 OB Labor Progress Note Pain Control Comments: No cervical exchange floor manager the last 8 hours, patient has spiked a fever at 12 PM and currently on ampicillin and gentamicin. Meconium stained amniotic fluid. Intermittent category 2 heart rate tracing Pelvic Exam Dilation (cm): 4 Effacement (%): 50 station: -2 Amniotic membrane status: Ruptured Contractions Monitor mode: Internal Contraction frequency: 2.5-4 Contraction pattern: Coupling Contraction intensity: Mild Status status: Category ll Assessment and Plan Comments: Patient counseled about all clinical findings and after discussion about delivery by versus continuing with the current management plan patient elected to proceed with . All her questions were answered to her apparent satisfaction.
--- NOTE | 2025-08-19 16:28 | ESHP_ITS ---
Documentation for date of: 08/19/25 OB Labor/Induct. HPI History of Present Illness Chief complaint: Labor : 1 Para: 0 Term pregnancies: 0 pregnancies: 0 Living children: 0 History of Abortions: Spontaneous and Elective: 0 History of Vaginal deliveries: 0 History of sections: No History of : No Date of last menstrual period: 11/16/24 JENNIFER: 08/23/25 Gestational Age (weeks): 39 Gestational Age (days): 3 Gestational age based on last menstrual period: 39 History of present illness: 25-year-old G1, P0 at 39 weeks and 3 days presents to labor and delivery triage with contractions. She presented to labor and delivery triage through the emergency room complaining of severe lower abdominal/pelvic pain and contractions. On initial arrival she was noted to be 3 to 4 cm dilated. Patient denies any vaginal bleeding or leakage of fluid and reports adequate movements. She received care at the [facility] clinic. All records were reviewed as scanned in. History of Present Adequate Care: Yes Labs Labs: Positive: Rubella Titre and Group Beta Strep, Negative: RPR, Hepatitis B, HIV, Chlamydia and Gonorrhea and Unknown: Herpes Type 1, Herpes Type 2 and Covid-19 Review of Systems Review of Systems Systems Reviewed: All systems reviewed, normal except as documented Past Medical History Surgical History SURGICAL: Negative Section Meds Home Medications and Allergies Home Medications ?Medication ?Instructions ?Recorded ?Confirmed ?Type vits 75-iron 28 mg-folic 1 pkg PO QDAY 08/19/25 History acid 800 mcg-omega-3 oral combo pack (One A Day Women's DHA) Allergies Allergy/AdvReac Type Severity Reaction Status Date / Time No Known Allergies Allergy Verified 08/19/25 02:00 OB Exam Physical Exam Vital signs: Temp Pulse Resp BP Pulse Ox 101.7 F H 113 H 18 108/52 L 98 08/19/25 15:11 08/19/25 16:16 08/19/25 14:30 08/19/25 16:16 08/19/25 16:28 Constitutional Constitutional: no acute distress Routine HEENT Exam Head: Present normocephalic and atraumatic Eye: Present EOMI and PERRL ENT: Present mucous membranes moist Routine Neck Exam Neck: Present supple and trachea midline Routine Cardiovascular Exam Cardiovascular: Present RRR Routine Abdominal Exam Abdominal: Present soft and normoactive bowel sounds Detailed Labor and Delivery Exam Dilation (cm): 3 Effacement (%): 50 station: -3 Consistency: medium Presentation: Vertex Baseline heart rate: 145 monitor accelerations: None monitor decelerations: Variable care home variability: Average (6-10) Contraction frequency (min): 10 Routine Extremities Exam Extremities: Present full ROM Routine Skin Exam Skin: Present intact, dry and warm Routine Neurological Exam Neurological: Present alert, oriented X3 and CN II-XII intact Routine Psychiatric Exam Psychiatric: Present normal affect and normal thought process OB Results Labs 08/19/25 12:14 08/19/25 12:14 Labs: Short CBC 08/19/25 08/19/25 Range/Units 03:05 12:14 WBC 20.4 H 19.1 H (3.6-11.0) Thou/mm3 Hgb 12.3 12.0 (12.0-16.0) g/dL Hct 35.9 L 35.1 L (36.0-46.0) % Plt Count 232 230 (140-440) Thou/mm3 BMP 08/19/25 12:14 Sodium 139 Potassium 3.5 Chloride 106 Carbon Dioxide 23.3 BUN < 5 L Creatinine 0.6 Glucose 82 Calcium 9.1 Cardiac Enzymes 08/19/25 Range/Units 12:14 Troponin I < 0.002 (0.0-0.045) ng/mL Liver Function 08/19/25 Range/Units 12:14 Total Bilirubin 0.9 (0.3-1.2) mg/dL AST 42 H (0-34) U/L ALT 11 (10-49) U/L Alkaline Phosphatase 130 H (46-116) U/L Albumin 4.2 (3.5-5.0) gm/dL OB Assessment & Plan Assessment and Plan (1) Mother positive for group B Streptococcus colonization: Status: Acute (2) Encounter for supervision of normal first , third trimester: Status: Acute (3) Prolonged first stage (of labor): Status: Acute Assessment and plan: Admit to inpatient status IV access, LR at 125 cc/h, labs to include CBC type and screen RPR GBS positive, start prophylaxis with ampicillin per protocol Epidural when desired Continuous maternal monitoring Pitocin augmentation if indicated
[2025-08-19] MEDS: CLINDAMYCIN 900MG IVPB 900 MG in PRE-MIXED 1 BAG 50 MG IV (16:29)
[2025-08-19] MEDS: FAMOTIDINE INJ 10 MG/ML VIAL 2 ML 20 MG IV (16:30)
--- NOTE | 2025-08-19 17:27 | PD.GYNPROC ---
Operative Note - ADOLESCENT SPECIALIST Procedure Date of procedure: 08/19/25 Procedure Performed: Primary low-transverse section Indication: 25-year-old G1, P0 at 39 weeks and 3 days Chorioamnionitis Category 2 heart rate tracing Failure to progress Post-Op diagnosis: Same Anesthesia type: Spinal Procedure description: Informed consent was obtained and the patient was taken to the operating room.? Identity was confirmed by double identifiers and she was placed on the operating table.? Spinal anesthesia was administered and she was positioned in the supine position.? The abdomen and perineum were prepped in the usual sterile fashion and a Lovell catheter was placed to continuous drainage.? Sterile drapes were applied.? The incision site was tested for adequacy of anesthesia.? A Pfannenstiel skin incision was made with a scalpel and carried to the subcutaneous fat up to the rectus fascia.? The rectus fascia was incised on either side of the midline and the incisions were extended bilaterally.? The fascia was gently dissected off the ventral surface of the rectus muscle both superiorly and inferiorly.? The rectus bellies were gently in the midline and the peritoneum was identified and entered bluntly using the surgeon's finger.? The peritoneal opening was now stretched to create an adequate opening for access to the uterus.? Pete O-ring retractor was placed for adequate visualization.? The anterior surface of the uterus was palpated.? The bladder reflection was identified and a Zeynep Wolf low transverse uterine incision was made in the lower uterine segment taking care to avoid the bladder.? Uterine entry was accomplished bluntly and the opening was stretched to create adequate room.? The amniotic membranes were now ruptured and clear amniotic fluid was released.? The fetus was noted to be in the vertex position.? The head was gently elevated out of the maternal pelvis and the rest of the shoulders and body were delivered by gentle fundal pressure.? Umbilical cord was doubly clamped, divided and the was handed over to the waiting team.? Cord gas samples were obtained.? The placenta was delivered by gentle traction on the umbilical cord.? The interior of the uterus was now thoroughly cleaned of all blood and debris and membranes.? Bilateral extensions were noted into the uterine arteries. The ends of the incision and the hysterotomy angles were grasped by a pair of Allis clamps and the hysterotomy was closed using 1 Monocryl suture in 2 layers.? The first layer was used to approximate the muscle in a running locked fashion, the second layer was used to approximate the thickness of the myometrium?and uterine serosa in an imbricated manner.? Continued bleeding was noted from both angles on the left side only repeat uterine artery ligation was performed and on the right side multiple [id number] imbricated sutures were placed to attempt hemostasis. Once the repair was completed the hysterotomy was inspected and noted to be adequately hemostatic.??A layer of Surgicel was placed for additional hemostasis. The hysterotomy was once again inspected and hemostasis was noted to be satisfactory.? The Pete retractor was now removed.? The peritoneal edges were re approximated.? The rectus muscles were re approximated.? The rectus fascia was now repaired using 0 Vicryl suture in a running fashion.? The subcutaneous layer was now copiously irrigated using warm normal saline.? All bleeding points were cauterized using the Bovie.? The subcutaneous fat was closed using 3-0 Vicryl.? The skin was closed using 4-0 Monocryl in a subcuticular fashion.? The skin was cleaned and a sterile dressing was applied.? The patient was now undraped, the abdomen and back were thoroughly cleaned and she was transferred to the recovery room in a stable and awake condition.? The patient tolerated the entire procedure well.? No complications were encountered.? All instrument, sponge and lap counts were correct x2. Estimated blood loss (ml): 750 Complications: none Surgical staff Operation Date: 08/19/25 16:45 <No data on this case meets the specified criteria> Diagnosis Discharge Diagnosis (1) Prolonged first stage (of labor): Status: Acute (2) Mother positive for group B Streptococcus colonization: Status: Acute (3) Encounter for supervision of normal first , third trimester: Status: Acute (4) : Status: Acute (5) delivery delivered: Status: Acute Problem List Completed Was Problem List Reviewed/Reconciled?: Yes (4) Qualifiers: Weeks of gestation: 39 weeks Qualified Code(s): Z3A.39 - 39 weeks gestation of
--- NOTE | 2025-08-19 17:33 | OBDSUM_ITS ---
Data ([place]) Data Hx Section: No : 1 Term: 0 : 0 Livin Abortions: Spontaneous & Theraputic: 0 Delivery Data (Grimes) Labor Data Induction/Augmentation Agent: None ROM date: 08/19/25 ROM time: 12:35 Amniotic membrane rupture type: Artificial Amniotic fluid description: Light Meconium Delivery Data Onset of labor date: 08/19/25 Onset of labor time: 06:00 delivery date: 08/19/25 [place] delivery time: 16:57 Placenta delivery date: 08/19/25 Placenta delivery time: 16:57 Delivered by: Evangelista Fairbanks Delivery nurse: Isai Morgan RN [place] nurse: Sergio MCKEON RN Employee Benefits Attorney at delivery: Yes (Dr. Torres) Support person(s) at delivery: fob Delivery Method Delivery method: Low Transverse Presentation: Vertex Anesthesia Type Anesthesia Type: Spinal Anesthesia type: Spinal Placenta Placenta delivery description: Manual Removal Cord blood sent to lab: Yes cord blood collection: Cord Blood Type Episiotomy Episiotomy description: None Umbilical Cord cord description: 3 Vessels E[place] Data ([place]imes) Data order: 1 Ettrick's gender: Male weight (gms): 3260 g Weight (pounds): 7 lbs and 3.0 ozs length: 50.8 cm 1 minute: 8 5 minutes: 9
[2025-08-19] MEDS: OXYTOCIN in NS 20 units 20 UNIT/1,000 ML BAG 125 UNIT IV (18:08)
[2025-08-19] MEDS: IBUPROFEN TAB 400 MG TABLET 800 MG PO (21:12)
[2025-08-20 00:10] VITALS: BP 105/71; PULSE 96; RESP 16; TEMP 36.6; O2SAT 96
[2025-08-20] MEDS: Ampicillin Inj 2,000 MG in SODIUM CHLORIDE 0.9% (POP) 100 ML 200 MG IV ×3 (00:10→12:09)
[2025-08-20] MEDS: CLINDAMYCIN 900MG IVPB 900 MG in PRE-MIXED 1 BAG 50 MG IV ×3 (00:42→16:24)
[2025-08-20] MEDS: OXYTOCIN in NS 20 units 20 UNIT/1,000 ML BAG 125 UNIT IV (04:00)
[2025-08-20 04:02] VITALS: BP 104/60; PULSE 100; RESP 16; TEMP 37.2; O2SAT 98
[2025-08-20 05:48] LABS: Basophils # (Auto) 0.0 Thou/mm3 (0.0-0.2); Basophils % (Auto) 0 % (0-2.5); Eosinophils # (Auto) 0.0 Thou/mm3 (0.0-0.5); Eosinophils % (Auto) 0 % (0-10); Hematocrit 32.2 % (36.0-46.0); Hemoglobin 10.5 g/dL (12.0-16.0); Immature Granulocytes Auto 0.07 Thou/mm3 (0.00-0.00); Lymphocytes # (Auto) 1.4 Thou/mm3 (1.0-4.8); Lymphocytes % (Auto) 9 % (10-50); Mean Corpuscular HGB Conc 32.6 g/dl (31.0-37.0); Mean Corpuscular Hemoglobin 28.7 pg (25.0-35.0); Mean Corpuscular Volume 88 fL (80-100); Monocytes # (Auto) 1.1 Thou/mm3 (0.0-0.8); Monocytes % (Auto) 7 % (0-12); Neutrophils # (Auto) 13.8 Thou/mm3 (1.8-7.7); Neutrophils % (Auto) 84 % (37-80); Nucleated Red Blood Cell # 0.00 Thou/mm3 (0.00-0.00); Nucleated Red Blood Cell % 0 /100 WBC (0); Platelet Count 202 Thou/mm3 (140-440); RDW Standard Deviation 43.3 fL (36.4-46.3); Red Blood Count 3.66 Miln/mm3 (4.00-5.20); White Blood Count 16.5 Thou/mm3 (3.6-11.0)
[2025-08-20] MEDS: IBUPROFEN TAB 400 MG TABLET 800 MG PO ×2 (05:59→16:24)
[2025-08-20 07:55] VITALS: BP 99/68; PULSE 93; RESP 18; TEMP 36.4; O2SAT 98
[2025-08-20] MEDS: DOCUSATE SOD 100 MG CAPSULE PO (08:33)
[2025-08-20] MEDS: GENTAMICIN/NS 80 MG IVPB 80 MG in PRE-MIXED 1 BAG 50 MG IV (09:26)
--- NOTE | 2025-08-20 11:39 | PD.LDPPPRG ---
Subjective Subjective Interval history: Patient is a 25-year-old -0-0-1 postop day 1 status post primary for suspected chorioamnionitis and category 2 tracing remote from delivery. This morning patient is resting comfortably in bed. No fevers or chills overnight. She is on triple antibiotics. Her is at bedside. The baby is in the nursery on antibiotics. Patient is tolerating a general diet and voiding. She has been up to the nursery to see the baby. She is working on breast-feeding. Exam Vital Signs Temp Pulse Resp BP Pulse Ox O2 Del Method 97.6 F 93 18 99/68 98 Room Air 08/20/25 07:55 08/20/25 07:55 08/20/25 07:55 08/20/25 07:55 08/20/25 07:55 08/20/25 07:55 Narrative Exam Patient is alert and orient x 3 in no apparent distress. Abdomen is soft fundus is firm dressing is clean dry and intact. Extremities show no significant edema or erythema. Objective Labs 08/20/25 04:44 08/19/25 12:14 Labs: Laboratory Results - last 24 hr 08/19/25 08/20/25 12:14 04:44 WBC 19.1 H 16.5 H RBC 4.11 3.66 L Hgb 12.0 10.5 L Hct 35.1 L 32.2 L MCV 85 88 MCH 29.2 28.7 MCHC 34.2 32.6 RDW Std Deviation 41.4 43.3 Plt Count 230 202 Neut % (Auto) 82 H 84 H Lymph % (Auto) 12 9 L [place] % (Auto) 6 7 Eos % (Auto) 0 0 Baso % (Auto) 0 0 Neut # (Auto) 15.7 H 13.8 H Lymph # (Auto) 2.2 1.4 [place] # (Auto) 1.1 H 1.1 H Eos # (Auto) 0.0 0.0 Baso # (Auto) 0.1 0.0 Immature Gran # (Auto) 0.10 H 0.07 H Absolute Nucleated RBC 0.00 0.00 Immature Gran % 1 H 0 Nucleated RBC % 0 0 PT 10.1 INR 0.9 APTT 27.7 Sodium 139 Potassium 3.5 Chloride 106 Carbon Dioxide 23.3 Anion Gap 10 BUN < 5 L Creatinine 0.6 Estim Creat Clear Calc 142.4 eGFR > 60 BUN/Creatinine Ratio 8 L Glucose 82 Calculated Osmolality 273 L Lactic Acid 1.3 Calcium 9.1 Corrected Calcium 9.1 Total Bilirubin 0.9 AST 42 H ALT 11 Alkaline Phosphatase 130 H Troponin I < 0.002 B-Natriuretic Peptide 40 Total Protein 6.7 Albumin 4.2 Globulin 2.5 Albumin/Globulin Ratio 1.7 Blood Type Cancelled Antibody Screen Cancelled Blood Bank Wristband ID Cancelled Assessment & Plan Problem List (1) delivery delivered: Status: Acute Assessment and plan: Continue routine postop orders. Ambulate. (2) Chorioamnionitis, delivered, current hospitalization: Problem details: Continue triple antibiotics. Recheck CBC in the morning. Status: Acute Time Spent With Patient Time: Total time spent is greater than 50% in coordination of care (as documented) at patient's floor/unit and/or counseling patient: Time with patient: less than 15 minutes
[2025-08-20 12:00] VITALS: BP 103/70; PULSE 94; RESP 17; TEMP 36.7
[2025-08-20 16:20] VITALS: BP 112/75; PULSE 97; RESP 16; TEMP 36.3
[2025-08-20 19:50] VITALS: BP 110/73; PULSE 97; RESP 16; TEMP 36.6; O2SAT 100
[2025-08-21] MEDS: IBUPROFEN TAB 400 MG TABLET 800 MG PO ×2 (00:46→09:10)
[2025-08-21 04:25] VITALS: BP 113/79; PULSE 92; RESP 16; TEMP 36.5; O2SAT 99
[2025-08-21 05:27] LABS: Basophils # (Auto) 0.0 Thou/mm3 (0.0-0.2); Basophils % (Auto) 0 % (0-2.5); Eosinophils # (Auto) 0.1 Thou/mm3 (0.0-0.5); Eosinophils % (Auto) 1 % (0-10); Hematocrit 32.0 % (36.0-46.0); Hemoglobin 10.7 g/dL (12.0-16.0); Immature Granulocytes Auto 0.16 Thou/mm3 (0.00-0.00); Lymphocytes # (Auto) 2.0 Thou/mm3 (1.0-4.8); Lymphocytes % (Auto) 13 % (10-50); Mean Corpuscular HGB Conc 33.4 g/dl (31.0-37.0); Mean Corpuscular Hemoglobin 29.3 pg (25.0-35.0); Mean Corpuscular Volume 88 fL (80-100); Monocytes # (Auto) 0.7 Thou/mm3 (0.0-0.8); Monocytes % (Auto) 5 % (0-12); Neutrophils # (Auto) 11.9 Thou/mm3 (1.8-7.7); Neutrophils % (Auto) 80 % (37-80); Nucleated Red Blood Cell # 0.00 Thou/mm3 (0.00-0.00); Nucleated Red Blood Cell % 0 /100 WBC (0); Platelet Count 241 Thou/mm3 (140-440); RDW Standard Deviation 43.7 fL (36.4-46.3); Red Blood Count 3.65 Miln/mm3 (4.00-5.20); White Blood Count 15.0 Thou/mm3 (3.6-11.0)
[2025-08-21 07:14] VITALS: BP 109/76; PULSE 88; RESP 20; TEMP 36.6; O2SAT 98
--- NOTE | 2025-08-21 07:58 | PC.NURSE ---
08/21/2025 0730: Pt. rates pain 05/26. Pt. educated on pain management options. Pt. would like to wait until motrin is available for administration. Pt. denies any other pain management options at this time.
--- NOTE | 2025-08-21 08:14 | PD.LDPPPRG ---
Subjective Subjective Interval history: Delivery type: , patient is now afebrile, will complete 48 hours around 4 to 5 PM today afternoon Patient doing well this morning. No acute complaints. Ambulating, tolerating p.o., and voiding without difficulty. HTN/Pre-E screen negative: No CP, SOB, P[place]NAM, visual changes, RUQ pain. : Yes Lochia: diminishing Bowel: Flatus + / BM + Exam Vital Signs Temp Pulse Resp BP Pulse Ox O2 Del Method 97.8 F 88 20 109/76 98 Room Air 08/21/25 07:14 08/21/25 07:14 08/21/25 07:14 08/21/25 07:14 08/21/25 07:14 08/21/25 07:14 Constitutional Constitutional: no acute distress Routine HEENT Exam Head: Present normocephalic and atraumatic Eye: Present EOMI and PERRL ENT: Present mucous membranes moist Routine Neck Exam Neck: Present supple and trachea midline Routine Respiratory Exam Respiratory: Present chest non-tender, lungs clear, normal breath sounds and no resp distress Routine Cardiovascular Exam Cardiovascular: Present RRR Routine Abdominal Exam Abdominal: Present soft and normoactive bowel sounds Routine Extremities Exam Extremities: Present full ROM Routine Skin Exam Skin: Present intact, dry and warm Routine Neurological Exam Neurological: Present alert, oriented X3 and CN II-XII intact Routine Psychiatric Exam Psychiatric: Present normal affect and normal thought process Objective Labs 08/21/25 04:59 08/19/25 12:14 Labs: Laboratory Results - last 24 hr 08/21/25 04:59 WBC 15.0 H RBC 3.65 L Hgb 10.7 L Hct 32.0 L MCV 88 MCH 29.3 MCHC 33.4 RDW Std Deviation 43.7 Plt Count 241 D Neut % (Auto) 80 Lymph % (Auto) 13 [place] % (Auto) 5 Eos % (Auto) 1 Baso % (Auto) 0 Neut # (Auto) 11.9 H Lymph # (Auto) 2.0 [place] # (Auto) 0.7 Eos # (Auto) 0.1 Baso # (Auto) 0.0 Immature Gran # (Auto) 0.16 H Absolute Nucleated RBC 0.00 Immature Gran % 1 H Nucleated RBC % 0 Assessment & Plan Problem List (1) delivery delivered: Status: Acute Assessment and plan: Doing well and meeting all postoperative milestones plan to discharge home today after she completes to 48 hours (2) Chorioamnionitis, delivered, current hospitalization: Status: Acute Assessment and plan: Will discontinue antibiotics now afebrile over 24 hours Time Spent With Patient Time: Total time spent is greater than 50% in coordination of care (as documented) at patient's floor/unit and/or counseling patient:
--- NOTE | 2025-08-21 08:16 | ESDS_ITS ---
DS: Providers Provider Date of admission: 08/19/25 02:50 Primary care physician: Physician No Primary/Family Admitting Provider: Evangelista Fairbanks MD Attending Provider on Admission: Evangelista Fairbanks MD Consults: 08/19/25 18:02 Referral Routine Comment: Attending Provider on DC: Evangelista Fairbanks MD Discharging Provider: Evangelista Fairbanks MD DS: Diagnosis Discharge Diagnosis (1) Chorioamnionitis, delivered, current hospitalization: Status: Acute (2) delivery delivered: Status: Acute Problem List Completed Was Problem List Reviewed/Reconciled?: Yes Summary/Hosp Course Brief History: 25-year-old G1, P0 at 39 weeks and 3 days presents to labor and delivery triage with contractions. She presented to labor and delivery triage through the emergency room complaining of severe lower abdominal/pelvic pain and contractions. On initial arrival she was noted to be 3 to 4 cm dilated. Patient denies any vaginal bleeding or leakage of fluid and reports adequate movements. She received care at the [facility] [facility] [facility]IST[facility] clinic. All records were reviewed as scanned in. Peripartum Data Delivery Method: Low Transverse Episiotomy Description: None Procedures: Procedures Operation Date: 08/19/25 16:45 Actual Procedure Side Surgeon p in OB Evangelista Fairbanks MD Time Spent with Patient Time attestation: Total time spent providing and/or coordinating discharge services: Exam Vital Signs Temp Pulse Resp BP Pulse Ox O2 Del Method 97.8 F 88 20 109/76 98 Room Air 08/21/25 07:14 08/21/25 07:14 08/21/25 07:14 08/21/25 07:14 08/21/25 07:14 08/21/25 07:14 Discharge Plan Plan Patient Disposition: HOME (Self Care) Patient condition on transfer: Stable Prescriptions/Referrals Prescriptions/Med Rec: New hydrocodone-acetaminophen 5-325 mg tablet 1 tab PO Q6H MDD 4 PRN (Reason: pain) 5 Days Qty: 20 0RF amoxicillin-pot clavulanate 875-125 mg tablet 1 tab PO BID 7 Days Qty: 14 0RF ibuprofen 600 mg tablet 600 mg PO Q6H MDD 4 PRN (Reason: fever or pain) 10 Days Qty: 40 0RF Continued One A Day Women's DHA 28 mg iron- 800 mcg combo pack 1 pkg PO QDAY Rx Instructions: orally; Referrals: Evangelista Fairbanks MD [Physician, [employer] TECHNICAL ASSISTANT] No Primary/Family,Physician [Primary Care Provider] Patient/Caregiver Discharge Instructions Discharge Activity: activity as tolerated Education Materials: After Delivery Champlain Concerns, Breast Care After , After a , C Section Dc, Feel Healthy After Print Language: Setswana Stand Alone Forms: Ly Award Info., Patient Portal Info Letter, DC from Surgery Discharge Order Discharge Orders: Discharge (Routine); Ordered 08/21/25 Ordered By: Evangelista Fairbanks Planned Discharge Date 08/21/25
[2025-08-21] MEDS: DOCUSATE SOD 100 MG CAPSULE PO (09:10)
[2025-08-21 15:04] VITALS: BP 118/83; PULSE 97; RESP 19; TEMP 37; O2SAT 98
[2025-08-21] MEDS: ACETAMINOPHEN 325 MG TABLET 650 MG PO (15:07)
== END 2025-08-21 17:55 | disposition home or self-care (01) | DRG 786 ==
LOC: S4SX 07:00 → S4NX 16:41
PROVIDERS: Obstetrics & Gynecology; Admitting Provider Obstetrics & Gynecology; Visit Provider Obstetrics & Gynecology
PROC: 10D00Z1 Extraction of Products of Conception, Low, Open Approach (ICD-10-PCS; CPT 59514; principal; 2025-08-19 16:30)
DX: O99.824 Streptococcus B carrier state complicating childbirth (principal); O41.1230 Chorioamnionitis, third trimester, not applicable or unspecified; O63.0 Prolonged first stage (of labor); Z3A.39 39 weeks gestation of pregnancy; Z37.0 Single live birth; O62.2 Other uterine inertia
CPT/HCPCS: 36415; 59025; 59409; 80053; 83605; 83880; 84484; 85025; 85610; 85730; 86780; 86850; 86900; 86901; 87040; 87086; 94762; A4217; A4314; A4649; J0131; J0290; J0736; J1580; J1885; J2210; J2250; J2274; J2371; J2590; J2704; J2795; J3010; J3490; J7030; J7050; J7120; A9270; J2270

== ENCOUNTER 2025-08-25 13:06 | Outpatient (AMBR) | payer BC, SELFPAY ==
--- NOTE | 2025-08-25 14:13 | LACNOTE_ITS ---
Assessment LAC Breast Assessment Breast Assessment Bilateral: Breast Assessment Comment: mom has large, pendulous breast Alternative Milk Expression Alternative Milk Expression Alternative Method Used: Yes Method Used: Pumping Alternative Method Comment: mom pumping every 2 hours around the clock, baby was not able to latch in hospital as he was in the NICU. Baby refused breast that was why mom was seeking help Alternative Method Used Reason: Poor Feeding Alternative Method Produced Milk / Colostrum: Yes Production Amount: 4 Production ounces or mls: ounces Pump Used: Electric Pumping Frequency Per Day: 2 (hours) LAC Assessment Breast Feeding Assessment Date of : 08/19/25 Current Age of baby: 6 (days) Weight: 3260.195 g Current weight of baby: 3203.496 g [place] # of Stool voids in last 24 hrs: 5 Stool Size: Medium Color of Stools: yellow # of Urine voids in last 24 hrs: 6 Color of Urine: clear Complications: Difficult Latch [place] Complications Comment: upon assessment observed what appeared to be a tongue tie and lip tie Activity Level: Awake / Alert and Rooting [place] Muscle Tone: Tense [place] Suck Quality: Areolar Compression and Tongue Retracts Effective Suck: Yes Swallow: Audible and Observed [place] Jaw: Clentched [place] Lip Seal: Poor and Tight Lips Feeding Posistion: Football Additional Latch or Posistion Assistance Needed: Full Breast Feeding Comment: Baby fought the positiong when he was cross cradle. helped mom into a football position with baby to assist in better latch. also used nipple shield and SNS to help keep baby at the breast. Breast Feeding Comment: baby fed for 7 minutes, then fell asleep post weights did not show big increase. after 3 minutes baby woke to eat again, he fed for 11 minutes at next feed some increase on post weight was observed Pre Weight (before feeding): 3203.496 g Post Weight (post feeding): 3316.894 g % gained or lost: 4% Gain LAC Intervention Interventions Tools: Nipple Shield and Aid Other Tools: 24 mm nipple shield also used supplemental nursing system, showed parents how to use Nipple Shield Size: Medium Techniques Discussed: Latch, Position and Hand Expression Discharge Follow Up Appointment Date and Time: one week, september 01 at 9 am Other Referral Made: Yes Feeding Preference at Discharge: Exclusive and Exclusive Pumped Brst Mlk LAC Latch Score LATCH Score Latch: Grasps Breast, Rythmic Suck Audible Swallow: Spontaneous, Intermittent, Frequent Nipple Type: Everted After Stimulation Comfort: Soft, Nontender Hold: Full Assistance Needed Total Score: 8 LAC [place] Oral Assessment [place] Oral Assessment Prenulum Level: Anterior Lip: Tight Upper Lip Palate: High Dental Referral made: Yes LAC Education Education : Education Topics: Hunger Cues, Infant Stomach Capacity, Milk Production, Nipple Care, Risk of Improper Latch Position and Signs of Adequate Intake Education Topic Comment: tongue tie and lip tie, mastitis and engorgment, medications and mothers milk Teaching Methods: Verbal instruction and Hand Out Resource Information Given: Dental Referral OP DC Assessment Discharge Follow Up Appointment Date and Time: one weekseptember 01 at 9 am Other Referral Made: Yes Visit Complete?: Yes
== END 2025-09-16 23:59 | disposition home or self-care (01) ==
LOC: HODLAC 13:06
DX: Z39.1 Encounter for care and examination of lactating mother (principal)

== ENCOUNTER 2025-08-26 10:25 | Outpatient (AMB) | payer BC, SELFPAY ==
--- NOTE | 2025-08-26 10:32 | AMBOBPPN_ITS ---
Vital Signs 08/26/25 10:33 Height 1.52 m Height Method Stated Weight 85.332 kg Weight Measurement Method Standing Scale BMI 36.7 BP 114/77 Blood Pressure Source Automatic Cuff Blood Pressure Location Left Upper Arm Position Sitting Respiration 16 Pulse 80 Pulse Source Monitor Temp 98 F Temp Source Oral Pulse Oximetry (%) 97 Oxygen Delivery Method Room Air Allergies/Home Meds Allergies & Medications Allergies No Known Allergies Allergy (Verified 08/26/25 10:36) Medication Reconciliation vits 75-iron 28 mg-folic acid 800 mcg-omega-3 oral combo pack (One A Day Women's DHA) 1 pkg PO QDAY 01/07/25 [History Confirmed 08/26/25] amoxicillin 875 mg-potassium clavulanate 125 mg tablet 1 tab PO BID 7 days #14 tabs 08/21/25 [Rx Confirmed 08/26/25] ibuprofen 600 mg tablet 600 mg PO Q6H PRN fever or pain 10 days #40 tabs 08/21/25 [Rx Confirmed 08/26/25] Intake Visit Data Collection New Patient or Established: Established Patient (seen at [facility] within 3 years) Reason for Visit:: Seen by Clinical Staff ONLY (RN/MA): No Auto 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 Required: No Do You Feel Safe at Home: Yes Authorities Contacted: N/A PCP or OBGYN visit in last 3 months: Yes Date of Last PCP or OBGYN visit: 08/25/25 Hx Now: No Are you currently on any form of Control: No Pain Present Currently: No Pain Scale Used: Sy-Savage/Numerical Pain scale:: 0 Smoking Status Smoking Status: Never smoker 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 History Past Medical History: No Hx Neurological Disorders, No Hx Hypothyroidism, No Hx Hyperthyroidism, No Hx Breast Cancer, No Hx Cardiac Disorders, No Hx Hypertension, No Hx Cancer, No Hx Blood Disorders, No Hx Anemia, No Hx Gastrointestinal Disorders, No Hx Renal Disease, No Hx Deep Vein Thrombosis, No Hx Diabetes Mellitus Type 1, No Hx Diabetes Mellitus Type 2 and No Hx Polycystic Ovarian Syndrome Questionnaires Covid-19 Vaccine Questionnaire Has patient been vacinated for Covid-19 Have you been vacinated for Covid-19: No Social History Living Situation History Marital Status: Single Lives With: Family Housing: House Housing Other:: 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 Her is in IT . 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 at Home: Yes EPDS - PP Depression Screening [place] Pospartum Depression Screen I have been able to laugh and see the funny side of things: (0) As much as I always could I have looked forward with enjoyment to things: (0) As much as I ever did I have blamed myself unnecessarily when things went wrong: (0) No, never I have been anxious or worried for no good reason: (0) No, not at all I have felt scared or panicky for no very good reason: (0) No, not at all Things have been getting on top of me: (0) No, I have been coping as well as ever I have been so unhappy that I have had difficulty sleeping: (0) No, not at all I have felt sad or miserable: (0) No, not at all I have been so unhappy that I have been crying: (0) No, never The thought of harming myself has occurred to me: (0) Never Total Score: EPDS Score: Referral is indicated for score of 9 or more, suicidal, or if provider believes patient is depressed regardless of score.: 0 EPDS completed yes Care OB Visit Log OB Flowsheet Initial Weight: 80 kg Date -?-?-?-?-?-?-?-?-?-?-?-?- EGA Weight BP Alb Glu CTX Pres Fundal ht FHR Mov Dilation Station Effacement Hx Notes Visit Note 01/07/25 -?-?-?--?-?-?-?-?-?-?-?-?- 7w 3d 80.456 kg (+455.946 g) 105/67 140 02/09/25 -?-?-?-?-?-?-?-?-?-?-?-?- 12w 1d 81.363 kg (+1363.131 g) 110/72 145 03/16/25 -?-?-?-?-?-?-?-?-?-?-?-?- 17w 1d 82.27 kg (+2270.316 g) 113/71 140 active 04/13/25 -?-?-?-?-?-?-?-?-?-?-?-?- 21w 1d 84.482 kg (+4481.579 g) 104/72 137 active Patient reports flutter. No vaginal bleeding no discharge. Structura l survey reviewed and normal. 05/04/25 -?-?-?-?-?-?-?-?-?-?-?-?- 24w 1d 84.141 kg (+4141.384 g) 96/62 145 active Positive movement no loss of fluids no vaginal bleeding Glucose chal lenge test order from [facility] 06/02/25 -?-?-?-?-?-?-?-?-?-?-?-?- 28w 2d 86.239 kg (+6239.249 g) 100/68 absent unknown 28 156 act kristin Denies OB complaints. Reports good movement. Patient completed 3-hour GTT. OB panel today. Increase fluids. Discussed weight gain and 3-hour GTT results results. Decrease sugary foods. Continue prenatals. Return in 3 weeks with OB for OB check 06/29/25 -?-?-?-?-?-?-?-?-?-?-?-?- 32w 1d 86.636 kg (+6636.142 g) 112/75 absent cephalic 34 132 ac tive +FM No UCs No LOF Ordered ultrasound for size greater than dates at [facility] in [place]. 07/19/25 -?-?-?-?-?-?-?-?-?-?-?-?- 35w 0d 88.224 kg (+8223.716 g) 108/72 occasional cephalic 35 145 active Good movement no contractions no loss of fluids Went to [facility] over the weekend she got dehydrated at her baby shower. They gave her fluids and check labs. They checked her cervix she was 1 cm. 07/27/25 -?-?-?-?-?-?-?-?-?-?-?-?- 36w 1d 88.621 kg (+8620.609 g) 115/77 occasional cephalic 36 156 active 1 -2 70 Good FM No UCs or VB GBBS done 08/05/25 -?-?-?-?-?-?-?-?-?-?-?-?- 37w 3d 89.528 kg (+9527.794 g) 108/73 occasional cephalic 37 136 active Good movement no contractions no vaginal bleeding. Declined exam today. +GBBS 08/10/25 -?-?-?-?-?-?-?-?-?-?-?-?- 38w 1d 90.038 kg (+10.038 kg) 114/78 occasional cephalic 36 146 active 1 -2 70 Good movement no significant contractions loss of fluid or vaginal bleeding Kick counts and labor precautions 08/17/25 -?-?-?-?-?--?-?-?-?-?-?-?- 39w 1d 88.054 kg (+8053.618 g) 114/76 occasional cephalic 36 137 active 2 -1 80 Good movement. Passed mucous plug. Feels contractions. Not enough to wake her up at night. Kick counts labo r precautions. Cervix very posterior. Follow-up in 1 week. JENNIFER Calculator Estimated Delivery Date Method Current WG Current Estimate 08/23/25 LMP (Certain) 40w 3d Expected Delivery Route/Plan Patient is a G1, P0 anticipate Specific Issue/Plans labs drawn at [facility]. B+/antibody screen negative/rubella immune/RPR nonreactive/HIV negative/hepatitis B surface antigen negative/1 hour glucose elevated 148/3-hour glucose normal NIPT 46 XY Ultrasound [facility] 07/12/2025 live IUP vertex presentation MICHELE 9.3 EFW 2318 which is about 5 pounds 10 ounces EDC 08/23/2025 Notes Visit Date: 08/17/25 Last Updated by: Peggy Perez ([facility] Clinic)MD Patient aware group B strep is positive. Visit Date: 08/10/25 Last Updated by: Peggy Perez ([facility] Clinic)MD Labor precautions Visit Date: 08/05/25 Last Updated by: Peggy Perez ([facility])MD Positive group B strep. Patient is not allergic to penicillin. The strep is resistant to clindamycin. Penicillin is drug of choice for group B strep. Patient is aware. Visit Date: 07/27/25 Last Updated by: Peggy Perez ([facility])MD Off work 08/03/25 GBBS cx done Visit Date: 07/19/25 Last Updated by: Peggy Perez ([facility])MD Patient desires Tdap. Like to go off work at this time. To go natural and not get an epidural in labor if possible Visit Date: 06/29/25 Last Updated by: Peggy Perez ([facility])MD Patient is present with her . She would like to collect her breastmilk and colostrum ahead of time. I recommended after 37 weeks. Patient with an ultrasound for size greater than dates. 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 We did labor. Patient is going to see how it goes she is open to epidural if needed. We discussed strep screen at 36 weeks. All questions were answered follow-up in 2 weeks. Visit Date: 06/02/25 Last Updated by: Yulia Marcial CNM 06/02/25: 3 hr gtt wnl Visit Date: 05/04/25 Last Updated by: Peggy Perez ([facility])MD No labs available from [facility]. Pap GC chlamydia negative NIPT negative structural survey within normal limits EDC 08/24/2025 Visit Date: 04/13/25 Last Updated by: Peggy Perez ([facility])MD Labs attempted to be obtained from [facility] and not available. Visit Date: 03/16/25 Last Updated by: Peggy Perez ([facility])MD Patient denies any vaginal bleeding or cramping she is still sensitive to smells. She is 17 weeks today and doing her NIPT. She did have her labs done at [facility] and we cannot pull these up at this time. She reports tension headache did discuss Tylenol magnesium and frequent eating also patient is okay to drink a coffee in the morning. She has stopped all caffeine. Structural survey was ordered. Visit Date: 02/09/25 Last Updated by: Peggy Perez ([facility])MD Patient is doing well getting some energy back still not a lot of appetite. Father the baby is at bedside. They both desire NIPT and we have to authorize for this. Her labs were drawn at [facility] and we will try to get a hold of them to review them for the patient. HPI Interval History: Sage Martin is a 25-year-old 1 para 1 woman presenting for a postoperative visit 7 days following section delivery. She underwent section on August 19, 2025 at 39 weeks and 3 days gestation due to failure to progress, category 2 heart tracing, and chorioamnionitis. The delivery was complicated by bilateral uterine extensions requiring bilateral uterine artery ligations with an estimated blood loss of 750 mL. The patient reports she is doing well overall. She denies fevers or chills. She is experiencing ongoing bleeding, which she expresses concern about. She denies constipation or bladder problems. She is currently and reports the baby is doing well. The baby?s animal hospital clerk is Dr. Vernon Martinez. She has a history of section on August 19, 2025 at 39 weeks and 3 days gestation due to failure to progress, category 2 heart tracing, and chorioamnionitis. The delivery was complicated by bilateral uterine extensions requiring bilateral uterine artery ligations with an estimated blood loss of 750 mL. She received care at [facility], [place], and [facility]. The patient is taking amoxicillin as prescribed for the infection that contributed to her delivery indication. She is also using hydrocortisone cream [id number] for itching and taking a stool softener. She is adhering to her current activity restrictions and postoperative care instructions. She is a 25-year-old female with an obstetric history of G1 T1 L1. She is currently . 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 Exam Narrative Physical exam: - Abdominal: incision site examined with tape removal performed. Incision appears well-healed and coming together appropriately. No dressing or bandage required. Small blood clot formation noted at incision site from surgical instruments. - Skin: Itching noted at surgical site. Hair removal occurred during tape removal from incision area. General General Appearance: alert, in no apparent distress and healthy appearing Head Head exam: atraumatic Neck Neck exam: Present normal inspection and trachea midline Chest Chest inspection: Present normal inspection and symmetric chest wall rise External exam: Present normal external exam; Absent tenderness Neuro Neurological exam: Present oriented X3 Psych Psychiatric exam: Present normal affect and normal mood Office Procedures OBC Clinic LOC & Office Proc's Nursing/Assessment Patient Status: Established Patient OB Clinic Nursing Assessment: Medication Reconciliation, Update PMH in EMR and Vital Signs OB Clinic Coordination of Care: Consent,records obtained, informed consent, Education Simp Pt/Fam, Lab and Imaging orders, Results/Orders obtained and Staff clarify orders Established Patient Charge Established Patient Point Assignment: 80 Established Patient Point Charge: EP Level 3 (80-115) Assessment & Plan Diagnosis / Problem List (1) Routine Follow-Up: Plan Postoperative Section Care: - 7 days following section performed on 08-19-2025 for failure to progress, category 2 heart tracing, and chorioamnionitis at 39 weeks 3 days gestation. - Surgery complicated by bilateral uterine extensions requiring bilateral uterine artery ligations with estimated blood loss of 750 mL. - Incision healing well without need for dressing or bandage. - Ongoing bleeding which is expected . - No fevers or chills reported. - Patient successfully. Plan: - Remove surgical tape from incision site. - Clean incision daily with soap and water, allow to air dry before dressing. - Use abdominal binder when walking or going out, not required at other times. - Activity restrictions: walking around house permitted, limit outdoor walking to 15-20 minutes, no lifting more than 20-25 pounds, driving permitted with seatbelt. - All restrictions to be lifted at 3 weeks postoperatively. - Apply [id number]-xamyfse hydrocortisone cream for incision itching. - Use new moisturizer (Cetaphil or Lubriderm) for 5-7 days then discard. - Complete course of amoxicillin for chorioamnionitis treatment. - Take stool softener as needed for constipation prevention. - Increase dietary fiber intake. - No dietary restrictions. - Follow-up appointment in 1 month. (FP) Tobacco Smoking Status: Never smoker
[2025-08-26 10:33] VITALS: BP 114/77; PULSE 80; RESP 16; TEMP 36.6; O2SAT 97; BMI 36.7
== END 2025-08-26 10:45 | disposition home or self-care (01) ==
LOC: HODSOBC 10:25
PROVIDERS: Supervising Provider Obstetrics & Gynecology; Visit Provider Obstetrics & Gynecology
DX: Z39.2 Encounter for routine postpartum follow-up (principal)
CPT/HCPCS: 99213; G0463

== ENCOUNTER 2025-10-04 09:47 | Outpatient (AMB) | payer BC, SELFPAY ==
[2025-10-04 09:53] VITALS: BP 112/77; PULSE 77; RESP 18; TEMP 36.2; O2SAT 98; BMI 33.8
--- NOTE | 2025-10-04 09:53 | AMBOBPPN_ITS ---
Vital Signs 10/04/25 09:53 Height 1.52 m Height Method Stated Weight 78.131 kg Weight Measurement Method Standing Scale BMI 33.8 BP 112/77 Blood Pressure Source Automatic Cuff Blood Pressure Location Left Upper Arm Position Sitting Respiration 18 Pulse 77 Pulse Source Monitor Temp 97.2 F Temp Source Oral Pulse Oximetry (%) 98 Oxygen Delivery Method Room Air Allergies/Home Meds Allergies & Medications Allergies No Known Allergies Allergy (Verified 10/04/25 09:54) Medication Reconciliation vits 75-iron 28 mg-folic acid 800 mcg-omega-3 oral combo pack (One A Day Women's DHA) 1 pkg PO QDAY 01/07/25 [History Confirmed 10/04/25] norethindrone (contraceptive) 0.35 mg tablet (Marlys) 0.35 mg PO QDAY 84 days #84 tabs 10/04/25 [Rx] Intake Visit Data Collection New Patient or Established: Established Patient (seen at [facility] within 3 years) Reason for Visit:: PP Seen by Clinical Staff ONLY (RN/MA): No Director Corporate Required: No Do You Feel Safe at Home: Yes Authorities Contacted: N/A PCP or OBGYN visit in last 3 months: Yes Date of Last PCP or OBGYN visit: 09/01/25 Hx Now: No Are you currently on any form of Control: No Pain Present Currently: No Pain Scale Used: Sy-Savage/Numerical Pain scale:: 0 Smoking Status Smoking Status: Never smoker Immunizations Flu Vaccine in the Last 12 Months: Yes Flu Vaccine Exclusion Criteria: Already 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: Past Medical History Past Medical History: No Hx Neurological Disorders, No Hx Hypothyroidism, No Hx Hyperthyroidism, No Hx Breast Cancer, No Hx Cardiac Disorders, No Hx Hypertension, No Hx Cancer, No Hx Blood Disorders, No Hx Anemia, No Hx Gastrointestinal Disorders, No Hx Renal Disease, No Hx Deep Vein Thrombosis, No Hx Diabetes Mellitus Type 1, No Hx Diabetes Mellitus Type 2 and No Hx Polycystic Ovarian Syndrome Questionnaires Covid-19 Vaccine Questionnaire Has patient been vacinated for Covid-19 Have you been vacinated for Covid-19: Yes Social History Living Situation History Lives With: Family Housing: House Housing Other:: 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 at Home: Yes EPDS - PP Depression Screening [place] Pospartum Depression Screen I have been able to laugh and see the funny side of things: (0) As much as I always could I have looked forward with enjoyment to things: (0) As much as I ever did I have blamed myself unnecessarily when things went wrong: (0) No, never I have been anxious or worried for no good reason: (0) No, not at all I have felt scared or panicky for no very good reason: (0) No, not at all Things have been getting on top of me: (0) No, I have been coping as well as ever I have been so unhappy that I have had difficulty sleeping: (0) No, not at all I have felt sad or miserable: (0) No, not at all I have been so unhappy that I have been crying: (0) No, never The thought of harming myself has occurred to me: (0) Never Total Score: EPDS Score: Referral is indicated for score of 9 or more, suicidal, or if provider believes patient is depressed regardless of score.: 0 EPDS completed yes HPI Interval History: Sage Martin presents for follow-up approximately one and a half months after section. The patient reports that everything is going well and that she has healed up completely from her surgery. She is seek ing contraceptive options and expresses interest in control methods. The patient has no reported complications or concerns related to her recent delivery or recovery period. She has a history of section approximately 6 weeks prior to current visit. The patient is and . ROS: Negative except as stated above, limited to MARINE GEOLOGIST and pertinent complaints. Exam General General Appearance: alert, in no apparent distress and healthy appearing Head Head exam: atraumatic Neck Neck exam: Present normal inspection and trachea midline Chest Chest inspection: Present normal inspection and symmetric chest wall rise External exam: Present normal external exam; Absent tenderness Neuro Neurological exam: Present oriented X3 Psych Psychiatric exam: Present normal affect and normal mood Office Procedures OBC Clinic LOC & Office Proc's Nursing/Assessment Patient Status: Established Patient OB Clinic Nursing Assessment: Medication Reconciliation, Update PMH in EMR and Vital Signs OB Clinic Coordination of Care: Consent,records obtained, informed consent, Education Simp Pt/Fam, Lab and Imaging orders, Results/Orders obtained and Staff clarify orders Established Patient Charge Established Patient Point Assignment: 80 Established Patient Point Charge: EP Level 3 (80-115) Assessment & Plan Diagnosis / Problem List (1) Encounter for initial prescription of contraceptive pills: Status: Acute (2) Encounter for sterilization: Status: Acute Plan Contraception: - Patient is approximately 6 weeks following section and requesting contraceptive options. - Patient is appropriate candidate for progestin-only contraception given status. Plan: - Prescribe Minipill (progestin-only oral contraceptive). - Prescription sent to [facility] pharmacy. - Plan to reassess contraceptive options at 3 months when combination oral contraceptives would not affect breast milk production. - Patient counseled that after 3 months, switching to combination pill would not affect breast milk. Recovery Status Post Section: - Patient reports good healing and recovery approximately 6 weeks following delivery with no apparent complications. Plan: - Patient cleared for full activity including exercise and resumption of sexual activity. - No restrictions. - Return as needed for any concerns.
== END 2025-10-04 10:13 | disposition home or self-care (01) ==
LOC: HODSOBC 09:47
PROVIDERS: Supervising Provider Obstetrics & Gynecology; Visit Provider Obstetrics & Gynecology
DX: Z39.2 Encounter for routine postpartum follow-up (principal); Z30.011 Encounter for initial prescription of contraceptive pills
CPT/HCPCS: 99213; G0463